=== PATIENT | male | born 1980 | race Two or more races ===

== ENCOUNTER 2017-02-12 05:14 | Inpatient (IN) | payer MEDICAID ==
[~2017-02-12] VITALS: Ht 170.2 cm; Wt 97.1 kg
[2017-02-12] MEDS ORDERED: NKM (05:30)
[2017-02-12 06:00] VITALS: BP 139/80
[2017-02-12] MEDS ORDERED: Morphine Sulfate 4mg/ml Inj IVP ONE (06:00)
[2017-02-12 06:30] LABS: BASOPHILS % (AUTO) 0.8 % (0.0-2.0); EOSINOPHILS % (AUTO) 2.3 % (0.0-3.0); LYMPHOCYTES % (AUTO) 24.3 % (20.0-45.0); MEAN CORPUSCULAR HEMOGLOBIN 27.8 PG (27.0-31.0); MEAN CORPUSCULAR VOLUME 84 FL (80-99); MEAN PLATELET VOLUME 7.6 FL (6.5-10.1); MONOCYTES % (AUTO) 7.8 % (1.0-10.0); NEUTROPHILS % (AUTO) 64.8 % (45.0-75.0); PLATELET COUNT 249 K/UL (150-450); RED BLOOD COUNT 4.86 M/UL (4.70-6.10); WHITE BLOOD COUNT 11.7 K/UL (4.8-10.8)
[2017-02-12 06:51] LABS: ALANINE AMINOTRANSFERASE 49 U/L (3-41); ALBUMIN/GLOBULIN RATIO 1.3 (1.0-2.7); ANION GAP 16 (5-15); ASPARTATE AMINO TRANSFERASE 36 U/L (5-40); CALCIUM 9.3 mg/dL (8.6-10.2); CARBON DIOXIDE 25 mEQ/L (20-30); CHLORIDE 98 mEQ/L (98-107); CREATININE 0.8 mg/dL (0.7-1.2); GLOMERULAR FILTRATION RATE > 60 mL/min (>60); HEMOLYSIS 2; POTASSIUM 3.7 mEQ/L (3.4-4.9); SODIUM 139 mEQ/L (135-145); TOTAL PROTEIN 7.4 g/dL (6.6-8.7); TROPONIN I < 0.30 ng/mL (<=0.30)
[2017-02-12 07:01] LABS: CKMB 2.4 ng/mL (< 6.7)
[2017-02-12] MEDS ORDERED: LR 1000ml 1,000 ML IV STA (07:12)
--- NOTE | 2017-02-12 07:38 | Emergency Room Report ---
History of Present Illness General Chief Complaint: General Complaint Source: Patient (ALE CALLES M.D.) Present Illness HPI 37-year-old male presents ED complaining of pain in his arms and legs. States symptoms started when he woke up this morning. Notes tingling sensation in both his arms and legs. Notes pain in his shoulders bilaterally. Notes pain in his bilateral hips and in his legs. Pain is a 10/10, throbbing, nonradiating. No other aggravating relieving factors. Notes pain and weakness but is able to walk. Difficulty raising his shoulders. States he has difficulty walking as well. Denies drug use. Denies chest pain or shortness of breath. No other aggravating relieving factors. Denies any other associated symptoms (ALE CALLES M.D.) Allergies: Coded Allergies: No Known Allergies (Unverified , 02/12/17) Patient History Past Medical History: none Past Surgical History: none Pertinent Family History: none Social History: Denies: alcohol use, drug use, smoking Immunizations: UTD Reviewed Nursing Documentation: PMH: Agreed, PSxH: Agreed (ALE CALLES M.D.) Nursing Documentation-PMH Past Medical History: No Stated History (ALE CALLES M.D.) Review of Systems All Other Systems: negative except mentioned in HPI (ALE CALLES M.D.) Physical Exam Vital Signs Date Time Temp Pulse Resp B/P Pulse Ox O2 Delivery O2 Flow Rate FiO2 02/12/17 05:24 98.4 90 18 153/80 97 Room Air Sp02 EP Interpretation: reviewed, normal General Appearance: alert, GCS 15, non-toxic, mild distress Head: normocephalic Eyes: bilateral eye PERRL, bilateral eye normal inspection ENT: normal ENT inspection Neck: normal inspection, tender lateral Respiratory: chest non-tender, lungs clear, normal breath sounds, speaking full sentences Cardiovascular #1: regular rate, rhythm, no edema Gastrointestinal: normal bowel sounds, non tender, soft, non-distended, no guarding, no rebound Rectal: deferred Genitourinary: no CVA tenderness Musculoskeletal: back normal, gait/station normal, normal range of motion, tender - bilateral shoulder and hip pain Neurologic: alert, oriented x3, responsive, speech normal, motor weakness, sensory deficit Psychiatric: anxious Skin: normal inspection Lymphatic: normal inspection (ALE CALLES M.D.) Medical Decision Making Diagnostic Impression: Primary Impression: Rhabdomyolysis Qualified Codes: M62.82 - Rhabdomyolysis ER Course Received signout from Dr Calles to followup CT head, CT c-spine CT head: ?old neurocysticercosis CT C-spine: unremarkable However MRI Brain w and w/out contrast was unremarkable Labs notable for Rhabdo but without JAMILAH Patient given 2L IVF hydration in the ED Endorsed to Dr Herrera for med/surg admission at 804am (MARYAM MADDOX M.D.) EKG Diagnostic Results Rate: normal Rhythm: NSR ST Segments: other - repolarization abnormality ASA given to the pt in ED: No (ALE CALLES M.D.) Rhythm Strip Diag. Results EP Interpretation: yes Rhythm: NSR, no PVC's, no ectopy (ALE CALLES M.D.) Last Vital Signs Date Time Temp Pulse Resp B/P Pulse Ox O2 Delivery O2 Flow Rate FiO2 02/12/17 06:00 98.4 78 18 139/80 98 Room Air Status: improved (ALE CALLES M.D.) Status: improved (MARYAM MADDOX M.D.) Disposition: ADMITTED INPATIENT Condition: Serious Referrals: NOT CHOSEN IPA/,REFERRING (PCP) ALE CALLES M.D. February 12, 2017 07:38 MARYAM MADDOX M.D. February 12, 2017 09:13
[2017-02-12 07:46] VITALS: BP 122/77
--- NOTE | 2017-02-12 08:48 | Diagnostic Imaging Report ---
Indication: Left-sided neck pain Technique: Spiral acquisitions obtained through the cervical spine. No IV contrast utilized. Multiplanar reconstructions were generated. Total dose length product 629 mGycm. CTDIvol(s) 25 mGy. Dose reduction achieved using automated exposure control Comparison: None Findings: No acute fractures. Bony alignment is normal. No prevertebral soft tissue swelling. Vertebral body heights are preserved. Disc spaces are preserved. No significant disc bulge or protrusion, spinal stenosis, or neural foraminal stenosis demonstrated. There is bilateral right greater than left maxillary sinus opacification. There is anterior subluxation of the mandibular condyles in relation to the glenoid fossae despite closed mouth positioning. There are dental caries Impression: No acute bony trauma Sinus disease Anterior subluxation of the mandibular condyles bilaterally, significance uncertain. Correlate with clinical findings. This agrees with the preliminary interpretation provided overnight by Dr. Henley The CT scanner at [facility] is accredited by the [employer] and the scans are performed using protocols designed to limit radiation exposure to as low as reasonably achievable to attain images of sufficient resolution adequate for diagnostic evaluation.
--- NOTE | 2017-02-12 08:48 | Diagnostic Imaging Report ---
Indications: Headache Technique: Spiral acquisitions obtained through the brain. Angled axial and coronal 5 x 5 mm slices were reconstructed. Total dose length product 1459 mGycm. CTDI vol(s) 70 mGy. Dose reduction achieved using automated exposure control Comparison: None Findings: No acute hemorrhage or edema. No mass effect or midline shift. Normal dubon-white differentiation. A calcification is seen at the dubon-white junction at the left temporal occipital junction. Another calcification is seen in the left inferior frontal cortex. There is bilateral maxillary sinus disease, right greater than left. Intact calvarium. As well as orbits are unremarkable. Impression: Negative for acute intracranial bleed or mass effect Parenchymal calcifications as described, consistent with old neurocysticercosis This agrees with the preliminary interpretation provided overnight by Dr. Henley The CT scanner at [facility] is accredited by the [employer] and the scans are performed using protocols designed to limit radiation exposure to as low as reasonably achievable to attain images of sufficient resolution adequate for diagnostic evaluation.
--- NOTE | 2017-02-12 08:54 | Diagnostic Imaging Report ---
Indication: 37-year-old male combining attain his arms and legs. Tingling sensation in both his arms legs. Abnormal recent CT scan Technique: sagittal T1 fast spin echo, axial T1 and T2 FLAIR PROPELLER, axial T2 FS PROPELLER, T2* GRE, axial diffusion weighted images, post contrast axial and coronal T1 FLAIR PROPELLER images. ADC and exponential ADC maps generated Comparison: Reference made to CT scan of earlier the same day Findings: . No abnormal areas of restricted diffusion to suggest acute infarction. No acute hemorrhage or edema. No mass effect nor midline shift. No abnormal contrast enhancement. Normal size ventricles and extra axial CSF spaces. There is ethmoid and maxillary sinus disease. The orbits are unremarkable. Parenchymal palpitations described on recent CT are equivocally barely visible on the GRE and axial postcontrast images. The vascular flow voids are preserved.. Impression: Essentially unremarkable exam. Negative for acute intracranial bleed, mass effect, infarct, or contrast enhancing lesion Note that parenchymal calcifications described on recent head CT are barely visualized on MRI
[2017-02-12 10:08] VITALS: BP 117/71
[2017-02-12 12:00] VITALS: BP 147/90
[2017-02-12] MEDS ORDERED: Norco 5mg/325mg tab ORAL PRN (12:30)
[2017-02-12] MEDS: HYDROmorphone 1mg/ml Carpuject IVP PRN ×2 (14:24→21:31)
--- NOTE | 2017-02-12 14:41 | Infectious Diseases Prog Note ---
Assessment/Plan Problems: (1) Brain parenchymal calcification Assessment & Plan: could be due to cystocercosis, brain MRI didn't show any active cysts , so no need for treatment (2) Rhabdomyolysis Assessment & Plan: suspect due to dehydration and vigorous activity , continue IVF , monitor CK. Subjective Allergies: Coded Allergies: No Known Allergies (Unverified , 02/12/17) Objective Vital Signs Last 24 Hour Vital Signs Date Time Temp Pulse Resp B/P Pulse Ox O2 Delivery O2 Flow Rate FiO2 02/12/17 12:00 97.7 72 16 147/90 98 Room Air 02/12/17 10:59 98.5 76 18 117/71 97 Room Air 02/12/17 10:08 76 18 117/71 97 Room Air 02/12/17 08:37 98.5 02/12/17 07:46 80 18 122/77 97 Room Air 02/12/17 06:00 98.4 78 18 139/80 98 Room Air 02/12/17 05:24 98.4 90 18 153/80 97 Room Air Height (Feet): 5 Height (Inches): 7.00 Weight (Pounds): 214 Laboratory Tests Test 02/12/17 06:10 White Blood Count 11.7 K/UL (4.8-10.8) H Red Blood Count 4.86 M/UL (4.70-6.10) Hemoglobin 13.5 G/DL (14.2-18.0) L Hematocrit 40.9 % (42.0-52.0) L Mean Corpuscular Volume 84 FL (80-99) Mean Corpuscular Hemoglobin 27.8 PG (27.0-31.0) Mean Corpuscular Hemoglobin Concent 33.0 G/DL (32.0-36.0) Red Cell Distribution Width 12.0 % (11.6-14.8) Platelet Count 249 K/UL (150-450) Mean Platelet Volume 7.6 FL (6.5-10.1) Neutrophils (%) (Auto) 64.8 % (45.0-75.0) Lymphocytes (%) (Auto) 24.3 % (20.0-45.0) Monocytes (%) (Auto) 7.8 % (1.0-10.0) Eosinophils (%) (Auto) 2.3 % (0.0-3.0) Basophils (%) (Auto) 0.8 % (0.0-2.0) Sodium Level 139 mEQ/L (135-145) Potassium Level 3.7 mEQ/L (3.4-4.9) Chloride Level 98 mEQ/L (98-107) Carbon Dioxide Level 25 mEQ/L (20-30) Anion Gap 16 (5-15) H Blood Urea Nitrogen 13 mg/dL (7-23) Creatinine 0.8 mg/dL (0.7-1.2) Estimat Glomerular Filtration Rate > 60 mL/min (>60) Glucose Level 147 mg/dL (74-106) H Calcium Level 9.3 mg/dL (8.6-10.2) Total Bilirubin 0.4 mg/dL (0.0-1.2) Aspartate Amino Transf (AST/SGOT) 36 U/L (5-40) Alanine Aminotransferase (ALT/SGPT) 49 U/L (3-41) H Alkaline Phosphatase 81 U/L (40-129) Total Creatine Kinase 1496 U/L (38-174) H Creatine Kinase MB 2.4 ng/mL (< 6.7) Creatine Kinase MB Relative Index 0.1 Troponin I < 0.30 ng/mL (<=0.30) Total Protein 7.4 g/dL (6.6-8.7) Albumin 4.3 g/dL (3.5-5.2) Globulin 3.1 g/dL Albumin/Globulin Ratio 1.3 (1.0-2.7) Urine Opiates Screen Negative (NEGATIVE) Urine Barbiturates Screen Negative (NEGATIVE) Phencyclidine (PCP) Screen Negative (NEGATIVE) Urine Amphetamines Screen Negative (NEGATIVE) Urine Benzodiazepines Screen Negative (NEGATIVE) Urine Cocaine Screen Negative (NEGATIVE) Urine Marijuana (THC) Screen Negative (NEGATIVE) Current Medications Medications (Trade) Dose Ordered Sig/Cortney Route PRN Reason Start Time Stop Time Status Last Admin Dose Admin Acetaminophen (Tylenol) 650 mg Q4H PRN ORAL Mild Pain/Temp > 100.5 02/12/17 12:30 03/14/17 12:29 Acetaminophen/ Hydrocodone Bitart ([place] 5/325) 1 tab Q4H PRN ORAL Moderate Pain (Pain Scale 4-6) 02/12/17 12:30 02/19/17 12:29 02/12/17 13:09 Gabapentin (Neurontin) 100 mg THREE TIMES A DAY ORAL 02/12/17 18:00 03/14/17 17:59 Hydromorphone HCl 1 mg 1 mg Q4H PRN IVP Severe Pain (Pain Scale 7-10) 02/12/17 13:30 02/19/17 13:29 02/12/17 14:24 Sodium Chloride (Sodium Chloride 1000ml bag) 1,000 ml @ 100 mls/hr Q10H IV 02/12/17 14:15 03/14/17 14:14 Davey Mcdonough M.D. February 12, 2017 14:41
--- NOTE | 2017-02-12 14:43 | Consultation ---
Consult Note Consult Note 37-year-old male presents ED complaining of pain in his arms and legs. States symptoms started when he woke up this morning. Notes tingling sensation in both his arms and legs. Notes pain in his shoulders bilaterally. Notes pain in his bilateral hips and in his legs. Pain is a 10/10, throbbing, nonradiating. No other aggravating relieving factors. Notes pain and weakness but is able to walk. Difficulty raising his shoulders. States he has difficulty walking as well. Denies drug use. Denies chest pain or shortness of breath. No other aggravating relieving factors. Denies any other associated symptoms Assessment/Plan persumed dehydration and Rhabdo Plan: Hydrate monitor renal parameters check UA per orders DANIE CHAVEZ February 12, 2017 14:43
[2017-02-12 17:16] LABS: APPEARANCE,URINE CLEAR; KETONES,URINE NEGATIVE (NEGATIVE); LEUKOCYTE ESTERASE ,URINE NEGATIVE (NEGATIVE); NITRITE,URINE NEGATIVE (NEGATIVE); PH,URINE 9 (4.5-8.0); PROTEIN,URINE NEGATIVE (NEGATIVE); UROBILINOGEN,URINE NORMAL MG/DL (0.0-1.0)
[2017-02-12 17:33] LABS: RBC,URINE 0 /HPF (0 - 0); WBC,URINE 0 /HPF (0 - 0)
--- NOTE | 2017-02-12 21:01 | Consultation ---
Consult Note Consult Note NEUROLOGY CONSULTATION: Full note dictated #[id number] 37 y/o, RH, HM with benign PH. On 02/09/17 developed an itchy rash all over his body. On 02/10/17 developed paresthesias involving all 4 extremities. Also started to have pain in all his muscles and weakness in all 4 limbs. The problem continued and he was thus brought to the hospital. ON EXAM: Disoriented to exact date. Problems with math Problems with VSF Generalized weakness. Tender muscles. Global areflexia. IMPRESSION: Significant myopathy and neuropathy. Possible viral syndrome vs other infectious process. Neurocysticercosis asymptomatic. REC: CK, Aldolase, TSH, ESR, RPR, HIV. If weakness worsens may want to do LP. Rajan Paniagua M.D., M.S.P.H. RAJAN PANIAGUA February 12, 2017 21:01
--- NOTE | 2017-02-12 21:02 | Consultation ---
DATE OF CONSULTATION: 02/12/2017 INFECTIOUS DISEASE CONSULTATION: CONSULTING PHYSICIAN: Davey Nair M.D. REQUESTING PHYSICIAN: Arnie Zepeda M.D. REASON FOR CONSULTATION: Brain calcification, suspicious for cysticercosis, and recommendation for antimicrobial treatment. HISTORY OF PRESENT ILLNESS: The patient is a 37-year-old male with no previous medical history, who works as a chef kitchen manager in the kitchen, presented with generalized weakness and pain in his arms and legs, started all of sudden, when he woke up on the date of admission, and he noticed some tingling sensation in both arms, legs, and shoulder. The patient could not get up or walk. So, he was carried by his friends and brought into the emergency room for further evaluation and management. He describes his muscle pain as 10/10, localized in his shoulder and hip area. He denied any recent travel or sick contact. He eats raw meat sometimes including beef and pork. He never had any serious illnesses or infection in the past. Head CT scan in the emergency room showed calcification in the brain, which was suspicious for cysticercosis, so ID was consulted by the primary provider for antibiotics treatment. REVIEW OF SYSTEMS: A 12-point of system reviewed were all negative apart from the one I mentioned above in my History and Physical. PAST MEDICAL HISTORY: Negative. PAST SURGICAL HISTORY: Negative. ALLERGIES: He has no known drug allergy. MEDICATIONS: He is on gabapentin and hydrocodone. SOCIAL HISTORY: He works in a kitchen. He denies using any drugs, tobacco, or alcohol. FAMILY HISTORY: Negative for recurrent infection or immunocompromised condition. PHYSICAL EXAMINATION: VITAL SIGNS: Temperature is 97.7 degrees, pulse 72, respirations 16, blood pressure 147/90, and saturation 98% on room air. GENERAL: This is a young male, lying in bed, awake, alert, and weak, not in distress. HEENT: Normocephalic and atraumatic. Pupils are reactive to light. Moist oral mucosa. No exudate. NECK: Supple. No lymphadenopathy. CARDIOVASCULAR: Regular rate and rhythm. No murmur or gallop. LUNGS: Clear bilaterally. No wheezing or rhonchi. ABDOMEN: Soft, nontender, and nondistended. Positive bowel sounds. EXTREMITIES: No edema or cyanosis. Generalized weakness in both upper and lower extremities and local muscle tenderness. LABORATORY DATA: White count is 11.7, hemoglobin 13.5, BUN 13, and creatinine 0.8. AST is 36, ALT 49, and alkaline phosphatase 81. CK is 1496. Toxicology screening is negative. IMAGING: Head CT scan was negative for acute intracranial bleed or mass effect, parenchyma calcifications as described consistent with old neurocysticercosis. Brain MRI with and without contrast showed unremarkable exam with no calcification. Cervical spine CT showed no acute bony trauma with sinus disease. ASSESSMENT AND RECOMMENDATION: 1. Brain calcification in the parenchyma with possible neurocysticercosis. His MRI of the brain did not show any active cyst, which need treatment. I do not recommend any treatment at this point. This is an old calcified lesion with no evidence of active cystic lesions in the brain parenchyma to prompt treatment. 2. Rhabdomyolysis, unclear etiology, possibly due to dehydration and vigorous activities. Recommend intravenous fluids and CK monitor. Davey Nair M.D. DR: Abigail JOB#: [id number] CC:
[2017-02-12 22:05] LABS: HEMOGLOBIN A1C 6.7 % (< 6.0)
[2017-02-12 22:11] LABS: THYROID STIMULATING HORMONE 0.586 uIU/mL (0.300-4.500)
--- NOTE | 2017-02-12 22:47 | Consultation ---
DATE OF CONSULTATION: 02/12/2017 NEUROLOGY CONSULTATION CONSULTING PHYSICIAN: Louie Paniagua M.D. REFERRING PHYSICIAN: Arnie Zepeda M.D. HISTORY: Mr. Trevor Bullard is a 37-year-old, right-handed, gentleman, who has a relatively benign past history. He was functioning relatively well until 02/09/2017 when he developed an itchy rash all over his body. On the next day, 02/10/2017, he developed paresthesias involving all four extremities in the form of tingling and numbness. He also started to have pain in his muscles and weakness in all four limbs. The problem became so difficult to care for at home and as a result of that he presented to the [facility] Emergency Room and has since been admitted. He is uncertain if the weakness has stabilized or not however the pain is still quite severe. The tingling and numbness are also there. He denies any problems with his memory or his mind. He also denies any problems with speech or language. He has not had any similar symptoms in the past. He denies any excessive exercise and also denies any insect bites. PAST MEDICAL HISTORY: Nothing significant. FAMILY HISTORY: Nothing significant. PERSONAL HISTORY: Home: He lives at home with his family. Work: He works as a Cook. Habits: He denies use of tobacco or illicit drugs. He does have a rare alcoholic drink. PRESENT MEDICATIONS: Include gabapentin, Dilaudid, and Foster. PHYSICAL EXAMINATION: GENERAL: He is a well-developed, well-nourished, gentleman, lying in bed, in no acute distress. VITAL SIGNS: Pulse 72 per minute, blood pressure 147/90 mmHg, respirations 16 per minute, temperature 97.7 degrees Fahrenheit. HEAD: Normocephalic and atraumatic. NECK: No neck rigidity was observed. EENT: Benign. NEUROLOGIC EXAMINATION: MENTAL STATUS EXAMINATION: He was alert and awake. He was oriented to person, place, and time except for the exact date and the name of the hospital. He was able to recall 3/3 words immediately after 1 minute and 3 minutes. He was able to remember presidents Trump and Obama but could not remember presidents prior to that. His mathematical skills were impaired. His visuospatial function was also impaired. SPEECH: He had no dysarthria. LANGUAGE: He had no aphasia. CRANIAL NERVE EXAMINATION: II: The visual angulo were intact on confrontation testing. III, IV & : The external ocular movements were full and pupils were 3 mm in diameter, equal, round, and reactive to light. V: He had normal facial sensations and the temporales, masseters, and pterygoids functioned normally. VII: He had normal facial expressions and no facial asymmetry. VIII: He was able to hear well bilaterally and had no nystagmus. IX: The palate moved symmetrically on phonation. X: He had no hoarseness of voice. XI: The sternocleidomastoids and trapezii functioned normally. XII: The tongue was in the midline without any fasciculations or atrophy. MOTOR SYSTEM: The tone was normal in all four extremities. Examination of muscle mass revealed no focal wasting. Examination of power was exceedingly difficult to perform because of significant give-way weakness related to pain. He however did seem to have some true weakness in his proximal and distal upper and lower extremity muscles. He also had tenderness involving all his muscles. SENSORY EXAMINATION: He had intact sensations to pinprick, light touch, and graphesthesia. COORDINATION: Nyrufg-or-bmee testing was performed with much difficulty due to pain. He could not perform [id number]-[id number] testing. REFLEXES: 0 at the biceps, triceps, brachioradialis, knees, and ankles. The plantar responses were flexor bilaterally. STANCE & GAIT: Could not be tested. DIAGNOSTIC IMPRESSION: 1. Mr. Trevor Bullard is a 37-year-old, right-handed, gentleman, who has a relatively benign past history. On 02/09/2017, he developed an itchy rash all over his body. On the next day, that is 02/10/2017 he developed paresthesias involving all four extremities and also started to have pain in all his muscles and weakness in all four limbs, these problems continued and as a result of that he came to the hospital and has since been admitted. He is uncertain if his symptoms have stabilized or not. 2. On neurological examination, at this time, he is disoriented to the exact date and where he is located, has problems with visuospatial function, and higher cognitive function, has generalized weakness associated with tender muscles, has global areflexia, and is unable to stand and walk because of weakness and pain in his limbs. 3. Laboratory data obtained thus far revealed that his WBC count was elevated to 11.7 and he was anemic with a hemoglobin of 13.5. His chemistry panel revealed an anion gap of 16 a blood glucose elevated to 147 and ALT elevated at 49. His CK was elevated to 1496. His urinalysis was relatively benign. His toxicology screen was benign to start with but a repeat toxicology screen was positive for opiates. It should be noted that he did get some opiates in the emergency room. 4. 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 An MRI scan of the brain is relatively benign. 5. The patient's history and neurological examination associated with laboratory data are most compatible with a significant myopathic process and in addition a neuropathic process. The most likely etiology for these processes would be a viral syndrome or other infectious process. 6. The patient's neurocysticercosis is asymptomatic. RECOMMENDATIONS: 1. Agree with management thus far. 2. The patient should be worked up thoroughly for other treatable causes of an acute myopathy and neuropathy, with in addition to the laboratory tests already done, a TSH, ESR, RPR, HIV, and in addition of CK and aldolase should also be checked. 3. If the patient's weakness worsens, we may want to obtain a lumbar puncture to determine if the patient has an acute inflammatory demyelinating polyneuropathy. 4. The patient should be observed closely and well hydrated. Thank you for entrusting me with the care of Mr. Bullard. I shall follow him with you. Louie Paniagua M.D., M.S.P.H. DR: Enrrique JOB#: [id number] AMOL
[2017-02-13] VITALS: BP 132/77
--- NOTE | 2017-02-13 03:32 | History and Physical Report ---
DATE OF ADMISSION: 02/12/2017 HISTORY OF PRESENT ILLNESS: A 37-year-old patient comes in with generalized pain and rhabdomyolysis. The patient apparently has no history of neurocysticercosis as well. Denies nausea, vomiting or diarrhea. No fever or chills. No abdominal pain. No shortness of breath. PAST MEDICAL HISTORY: Neurocysticercosis and GERD. PAST SURGICAL HISTORY: Denies. MEDICATIONS: In the chart. ALLERGIES: Denies. SOCIAL HISTORY: No smoking, drug or alcohol abuse. FAMILY HISTORY: Noncontributory. REVIEW OF SYSTEMS: HEENT: Denies headache. Respiratory: Denies shortness of breath. Denies cough. Cardiovascular: Denies chest pain. Gastrointestinal: Denies nausea, vomiting, or diarrhea. Extremities: Denies pain in the lower extremities. Central Nervous System: He does have generalized weakness. Denies change in vision or speech pattern. PHYSICAL EXAMINATION: VITAL SIGNS: Temperature is 97.2 degrees, pulse 70, and blood pressure 130/70. HEENT: PERRLA. NECK: Supple. No lymphadenopathy. CHEST: Clear to auscultation. GASTROINTESTINAL: Soft, nontender, and nondistended. No organomegaly. EXTREMITIES: No edema. Moves all four extremities. Motor is 5/5. NEUROLOGIC: Sensory is intact to light touch. Reflexes on both sides. LABORATORY AND DIAGNOSTIC DATA: Normal except elevated rhabdomyolysis and CPK of 380. ASSESSMENT AND PLAN: 1. Dehydration. 2. Rhabdomyolysis. 3. History of neurocysticercosis. I will consult Dr. Nair, Dr. Paniagua and Dr. Bah to evaluate for the above-mentioned diagnoses and treatment. Arnie Zepeda M.D. DR: BASIA JOB#: [id number] CC:
[2017-02-13 04:00] VITALS: BP 127/69
[2017-02-13] MEDS: HYDROmorphone 1mg/ml Carpuject IVP PRN ×2 (04:07→12:12)
[2017-02-13 07:03] LABS: BASOPHILS % (AUTO) 0.9 % (0.0-2.0); EOSINOPHILS % (AUTO) 1.8 % (0.0-3.0); LYMPHOCYTES % (AUTO) 28.6 % (20.0-45.0); MEAN CORPUSCULAR HEMOGLOBIN 28.5 PG (27.0-31.0); MEAN CORPUSCULAR HGB CONC 33.8 G/DL (32.0-36.0); MEAN CORPUSCULAR VOLUME 84 FL (80-99); MEAN PLATELET VOLUME 7.1 FL (6.5-10.1); MONOCYTES % (AUTO) 12.2 % (1.0-10.0); NEUTROPHILS % (AUTO) 56.4 % (45.0-75.0); PLATELET COUNT 248 K/UL (150-450); RED BLOOD COUNT 4.44 M/UL (4.70-6.10); RED CELL DISTRIBUTION WIDTH 11.9 % (11.6-14.8); WHITE BLOOD COUNT 10.2 K/UL (4.8-10.8)
[2017-02-13 07:25] LABS: ALANINE AMINOTRANSFERASE 35 U/L (3-41); ANION GAP 15 (5-15); ASPARTATE AMINO TRANSFERASE 19 U/L (5-40); CALCIUM 8.9 mg/dL (8.6-10.2); CARBON DIOXIDE 23 mEQ/L (20-30); CHLORIDE 97 mEQ/L (98-107); CREATININE 0.7 mg/dL (0.7-1.2); GLOMERULAR FILTRATION RATE > 60 mL/min (>60); HEMOLYSIS 1; POTASSIUM 3.6 mEQ/L (3.4-4.9); SODIUM 135 mEQ/L (135-145); TOTAL PROTEIN 7.1 g/dL (6.6-8.7)
[2017-02-13 07:27] LABS: CRP QUANT 10.2 mg/dL (< 0.5); MAGNESIUM 1.6 mg/dL (1.7-2.5); PHOSPHORUS 3.7 mg/dL (2.5-4.8); URIC ACID 3.9 mg/dL (3.0-7.5)
[2017-02-13 08:15] VITALS: BP 130/75
--- NOTE | 2017-02-13 08:28 | Consultation ---
History of Present Illness General Date patient seen: February 13, 2017 Time patient seen: 07:45 - am Chief Complaint: Body pain Referring physician: Duane Present Illness Allergies: Coded Allergies: No Known Allergies (Unverified , 02/12/17) Medication History Scheduled No Known Medications* (NKM - No Known Medications*), 0 ., (Reported) Medications Narrative 37-year-old male presents ED complaining of pain in his arms and legs. States symptoms started when he woke up this morning. Notes tingling sensation in both his arms and legs. Notes pain in his shoulders bilaterally. Notes pain in his bilateral hips and in his legs. Pain is a 10/10, throbbing, nonradiating. No other aggravating relieving factors. Notes pain and weakness but is able to walk. Difficulty raising his shoulders. Patient started on Dilaudid 1mg IV Q4H PRN severe pain which has helped reduce his pain to a 6/10. Patient History Healthcare decision maker Resuscitation status Full Code Advanced Directive on File Review of Systems Constitutional: Reports: weakness Eye: Reports: no symptoms ENT: Reports: no symptoms Respiratory: Reports: no symptoms Cardiovascular: Reports: no symptoms Gastrointestinal: Reports: no symptoms Genitourinary: Reports: no symptoms Musculoskeletal: Reports: muscle pain, muscle stiffness Skin: Reports: no symptoms Psychiatric: Reports: no symptoms Neurological: Reports: no symptoms Endocrine: Reports: no symptoms Hematologic/Lymphatic: Reports: no symptoms Physical Exam General Appearance: WD/WN, no apparent distress, alert HEENT: PERRL, EOMI Neck: non-tender, supple Respiratory/Chest: lungs clear, normal breath sounds Cardiovascular/Chest: normal rate, regular rhythm Abdomen: non tender, soft Extremities: non-tender Skin Exam: warm/dry Neurologic: alert, oriented x 3 Musculoskeletal: normal muscle bulk Last 24 Hour Vital Signs Date Time Temp Pulse Resp B/P Pulse Ox O2 Delivery O2 Flow Rate FiO2 02/13/17 08:15 97.9 74 23 130/75 95 Room Air 02/13/17 04:37 98.0 02/13/17 04:00 98.1 79 20 127/69 98 Room Air 02/13/17 00:00 98.0 80 18 132/77 97 Room Air 99.0 02/12/17 12:00 97.7 72 16 147/90 98 Room Air 02/12/17 10:59 98.5 76 18 117/71 97 Room Air 02/12/17 10:08 76 18 117/71 97 Room Air 02/12/17 08:37 98.5 Intake and Output 02/12/17 02/13/17 19:00 07:00 Intake Total 1880 ml 1560 ml Output Total 600 ml Balance 1280 ml 1560 ml Intake Oral 480 ml 360 ml IV Total 1400 ml 1200 ml Output Urine Total 600 ml # Voids 1 4 Laboratory Tests Test 02/12/17 17:00 02/12/17 21:16 02/13/17 04:30 Urine Color Pale yellow Urine Appearance Clear Urine pH 9 (4.5-8.0) Urine Specific [place] 1.015 (1.005-1.035) Urine Protein Negative (NEGATIVE) Urine Glucose (UA) Negative (NEGATIVE) Urine Ketones Negative (NEGATIVE) Urine Occult Blood Negative (NEGATIVE) Urine Nitrite Negative (NEGATIVE) Urine Bilirubin Negative (NEGATIVE) Urine Urobilinogen Normal MG/DL (0.0-1.0) Urine Leukocyte Esterase Negative (NEGATIVE) Urine RBC 0 /HPF (0 - 0) Urine WBC 0 /HPF (0 - 0) Urine Squamous Epithelial Cells None /LPF (NONE/OCC) Urine Bacteria None /HPF (NONE) Urine Opiates Screen Positive (NEGATIVE) H Urine Barbiturates Screen Negative (NEGATIVE) Phencyclidine (PCP) Screen Negative (NEGATIVE) Urine Amphetamines Screen Negative (NEGATIVE) Urine Benzodiazepines Screen Negative (NEGATIVE) Urine Cocaine Screen Negative (NEGATIVE) Urine Marijuana (THC) Screen Negative (NEGATIVE) Erythrocyte Sedimentation Rate 62 MM/HR (0-15) H Hemoglobin A1c 6.7 % (< 6.0) H Total Creatine Kinase 695 U/L (38-174) H 465 U/L (38-174) H Aldolase Pending Vitamin B12 Level 491 pg/mL (211-946) Vitamin D 25-Hydroxy Pending 25-Hydroxy Vitamin D2 Pending 25-Hydroxy Vitamin D3 Pending Folate Pending Thyroid Stimulating Hormone (TSH) 0.586 uIU/mL (0.300-4.500) Rapid Plasma Reagin Pending HIV (1&2) Antibody Rapid Negative (NEGATIVE) White Blood Count 10.2 K/UL (4.8-10.8) Red Blood Count 4.44 M/UL (4.70-6.10) L Hemoglobin 12.7 G/DL (14.2-18.0) L Hematocrit 37.5 % (42.0-52.0) L Mean Corpuscular Volume 84 FL (80-99) Mean Corpuscular Hemoglobin 28.5 PG (27.0-31.0) Mean Corpuscular Hemoglobin Concent 33.8 G/DL (32.0-36.0) Red Cell Distribution Width 11.9 % (11.6-14.8) Platelet Count 248 K/UL (150-450) Mean Platelet Volume 7.1 FL (6.5-10.1) Neutrophils (%) (Auto) 56.4 % (45.0-75.0) Lymphocytes (%) (Auto) 28.6 % (20.0-45.0) Monocytes (%) (Auto) 12.2 % (1.0-10.0) H Eosinophils (%) (Auto) 1.8 % (0.0-3.0) Basophils (%) (Auto) 0.9 % (0.0-2.0) Sodium Level 135 mEQ/L (135-145) Potassium Level 3.6 mEQ/L (3.4-4.9) Chloride Level 97 mEQ/L (98-107) L Carbon Dioxide Level 23 mEQ/L (20-30) Anion Gap 15 (5-15) Blood Urea Nitrogen 10 mg/dL (7-23) Creatinine 0.7 mg/dL (0.7-1.2) Estimat Glomerular Filtration Rate > 60 mL/min (>60) Glucose Level 142 mg/dL (74-106) H Uric Acid 3.9 mg/dL (3.0-7.5) Calcium Level 8.9 mg/dL (8.6-10.2) Phosphorus Level 3.7 mg/dL (2.5-4.8) Magnesium Level 1.6 mg/dL (1.7-2.5) L Total Bilirubin 0.7 mg/dL (0.0-1.2) Gamma Glutamyl Transpeptidase 40 U/L (8-61) Aspartate Amino Transf (AST/SGOT) 19 U/L (5-40) Alanine Aminotransferase (ALT/SGPT) 35 U/L (3-41) Alkaline Phosphatase 69 U/L (40-129) C-Reactive Protein, Quantitative 10.2 mg/dL (< 0.5) H Total Protein 7.1 g/dL (6.6-8.7) Albumin 3.6 g/dL (3.5-5.2) Globulin 3.5 g/dL Albumin/Globulin Ratio 1.0 (1.0-2.7) Height (Feet): 5 Height (Inches): 7.00 Weight (Pounds): 214 Medications Current Medications Medications (Trade) Dose Ordered Sig/Cortney Route PRN Reason Start Time Stop Time Status Last Admin Dose Admin Acetaminophen (Tylenol) 650 mg Q4H PRN ORAL Mild Pain/Temp > 100.5 02/12/17 12:30 03/14/17 12:29 Acetaminophen/ Hydrocodone Bitart ([place] 5/325) 1 tab Q4H PRN ORAL Moderate Pain (Pain Scale 4-6) 02/12/17 12:30 02/19/17 12:29 02/12/17 13:09 Gabapentin (Neurontin) 100 mg THREE TIMES A DAY ORAL 02/12/17 18:00 03/14/17 17:59 02/13/17 07:58 Hydromorphone HCl 1 mg 1 mg Q4H PRN IVP Severe Pain (Pain Scale 7-10) 02/12/17 13:30 02/19/17 13:29 02/13/17 04:07 Sodium Chloride (Sodium Chloride 1000ml bag) 1,000 ml @ 100 mls/hr Q10H IV 02/12/17 15:00 03/14/17 14:59 02/13/17 00:40 Assessment/Plan Assessment/Plan (1) Rhabdomyolysis (2) Myalgia Pt will be continued on Dilaudid 1mg IV Q4H PRN severe pain D/w Dr. Borjas and he concurred. Thank you for the courtesy of this consultation. FABIENNE MELENDREZ February 13, 2017 08:28
--- NOTE | 2017-02-13 10:55 | Cardiology Report ---
APPROVED REPORT EKG Measurement Heart [id number] Normal sinus rhythm Normal ECG
--- NOTE | 2017-02-13 11:57 | General Progress Note ---
Assessment/Plan Problem List: (1) Rhabdomyolysis ICD Codes: M62.82 - Rhabdomyolysis SNOMED: 207685226 Qualifiers: Qualified Codes: M62.82 - Rhabdomyolysis (2) Brain parenchymal calcification ICD Codes: G93.89 - Other specified disorders of brain SNOMED: 20302047 Status: progressing Assessment/Plan generalized pain and decreased rom due to pain so also consulted dr linda padilla needs aggressive ivfluid treatment Subjective ROS Limited/Unobtainable: Yes Constitutional: Reports: no symptoms Allergies: Coded Allergies: No Known Allergies (Unverified , 02/12/17) Objective Last 24 Hour Vital Signs Date Time Temp Pulse Resp B/P Pulse Ox O2 Delivery O2 Flow Rate FiO2 02/13/17 08:15 97.9 74 23 130/75 95 Room Air 02/13/17 04:37 98.0 02/13/17 04:00 98.1 79 20 127/69 98 Room Air 02/13/17 00:00 98.0 80 18 132/77 97 Room Air 99.0 02/12/17 12:00 97.7 72 16 147/90 98 Room Air Intake and Output 02/12/17 02/13/17 19:00 07:00 Intake Total 1880 ml 1560 ml Output Total 600 ml Balance 1280 ml 1560 ml Intake Oral 480 ml 360 ml IV Total 1400 ml 1200 ml Output Urine Total 600 ml # Voids 1 4 Laboratory Tests 02/12/17 17:00: Urine Color Pale yellow, Urine Appearance Clear, Urine pH 9, Urine Specific [place] 1.015, Urine Protein Negative, Urine Glucose (UA) Negative, Urine Ketones Negative, Urine Occult Blood Negative, Urine Nitrite Negative, Urine Bilirubin Negative, Urine Urobilinogen Normal, Urine Leukocyte Esterase Negative , Urine RBC 0, Urine WBC 0, Urine Squamous Epithelial Cells None, Urine Bacteria None, Urine Opiates Screen PositiveH, Urine Barbiturates Screen Negative, Phencyclidine (PCP) Screen Negative, Urine Amphetamines Screen Negative, Urine Benzodiazepines Screen Negative, Urine Cocaine Screen Negative, Urine Marijuana (THC) Screen Negative 02/12/17 21:16: Erythrocyte Sedimentation Rate 62H, Hemoglobin A1c 6.7H, Total Creatine Kinase 695H, Aldolase [Pending], Vitamin B12 Level 491, Vitamin D 25-Hydroxy [Pending] , 25-Hydroxy Vitamin D2 [Pending], 25-Hydroxy Vitamin D3 [Pending], Folate [ Pending], Thyroid Stimulating Hormone (TSH) 0.586, Rapid Plasma Reagin [Pending] , HIV (1&2) Antibody Rapid Negative 02/13/17 04:30: Total Creatine Kinase 465H, White Blood Count 10.2, Red Blood Count 4.44L, Hemoglobin 12.7L, Hematocrit 37.5L, Mean Corpuscular Volume 84, Mean Corpuscular Hemoglobin 28.5, Mean Corpuscular Hemoglobin Concent 33.8, Red Cell Distribution Width 11.9, Platelet Count 248, Mean Platelet Volume 7.1, Neutrophils (%) (Auto) 56.4, Lymphocytes (%) (Auto) 28.6, Monocytes (%) (Auto) 12.2H, Eosinophils (%) (Auto) 1.8, Basophils (%) (Auto) 0.9, Sodium Level 135, Potassium Level 3.6, Chloride Level 97L, Carbon Dioxide Level 23, Anion Gap 15, Blood Urea Nitrogen 10, Creatinine 0.7, Estimat Glomerular Filtration Rate > 60 , Glucose Level 142H, Uric Acid 3.9, Calcium Level 8.9, Phosphorus Level 3.7, Magnesium Level 1.6L, Total Bilirubin 0.7, Gamma Glutamyl Transpeptidase 40, Aspartate Amino Transf (AST/SGOT) 19, Alanine Aminotransferase (ALT/SGPT) 35, Alkaline Phosphatase 69, C-Reactive Protein, Quantitative 10.2H, Total Protein 7.1, Albumin 3.6, Globulin 3.5, Albumin/Globulin Ratio 1.0 Height (Feet): 5 Height (Inches): 7.00 Weight (Pounds): 214 EENT: PERRL/EOMI Neck: supple Cardiovascular: normal rate Respiratory/Chest: lungs clear Abdomen: non tender Arnie Zepeda MD February 13, 2017 11:57
[2017-02-13 12:15] VITALS: BP 145/82
--- NOTE | 2017-02-13 13:28 | General Progress Note ---
Assessment/Plan Status: stable Assessment/Plan Rhabdo- dehydration- Myopathy- ? viral DM , high A1c diet to medium carb motrin gastric support hydrate per orders Subjective ROS Limited/Unobtainable: No Constitutional: Reports: malaise, other - body pain, weakness Allergies: Coded Allergies: No Known Allergies (Unverified , 02/12/17) Objective Last 24 Hour Vital Signs Date Time Temp Pulse Resp B/P Pulse Ox O2 Delivery O2 Flow Rate FiO2 02/13/17 12:42 97.9 02/13/17 12:15 97.9 79 23 145/82 97 Room Air 02/13/17 08:15 97.9 74 23 130/75 95 Room Air 02/13/17 04:00 98.1 79 20 127/69 98 Room Air 02/13/17 00:00 98.0 80 18 132/77 97 Room Air 99.0 Intake and Output 02/12/17 02/13/17 19:00 07:00 Intake Total 1880 ml 1560 ml Output Total 600 ml Balance 1280 ml 1560 ml Intake Oral 480 ml 360 ml IV Total 1400 ml 1200 ml Output Urine Total 600 ml # Voids 1 4 Laboratory Tests 02/12/17 17:00: Urine Color Pale yellow, Urine Appearance Clear, Urine pH 9, Urine Specific [place] 1.015, Urine Protein Negative, Urine Glucose (UA) Negative, Urine Ketones Negative, Urine Occult Blood Negative, Urine Nitrite Negative, Urine Bilirubin Negative, Urine Urobilinogen Normal, Urine Leukocyte Esterase Negative , Urine RBC 0, Urine WBC 0, Urine Squamous Epithelial Cells None, Urine Bacteria None, Urine Opiates Screen PositiveH, Urine Barbiturates Screen Negative, Phencyclidine (PCP) Screen Negative, Urine Amphetamines Screen Negative, Urine Benzodiazepines Screen Negative, Urine Cocaine Screen Negative, Urine Marijuana (THC) Screen Negative 02/12/17 21:16: Erythrocyte Sedimentation Rate 62H, Hemoglobin A1c 6.7H, Total Creatine Kinase 695H, Aldolase [Pending], Vitamin B12 Level 491, Vitamin D 25-Hydroxy [Pending] , 25-Hydroxy Vitamin D2 [Pending], 25-Hydroxy Vitamin D3 [Pending], Folate [ Pending], Thyroid Stimulating Hormone (TSH) 0.586, Rapid Plasma Reagin [Pending] , HIV (1&2) Antibody Rapid Negative 02/13/17 04:30: Total Creatine Kinase 465H, White Blood Count 10.2, Red Blood Count 4.44L, Hemoglobin 12.7L, Hematocrit 37.5L, Mean Corpuscular Volume 84, Mean Corpuscular Hemoglobin 28.5, Mean Corpuscular Hemoglobin Concent 33.8, Red Cell Distribution Width 11.9, Platelet Count 248, Mean Platelet Volume 7.1, Neutrophils (%) (Auto) 56.4, Lymphocytes (%) (Auto) 28.6, Monocytes (%) (Auto) 12.2H, Eosinophils (%) (Auto) 1.8, Basophils (%) (Auto) 0.9, Sodium Level 135, Potassium Level 3.6, Chloride Level 97L, Carbon Dioxide Level 23, Anion Gap 15, Blood Urea Nitrogen 10, Creatinine 0.7, Estimat Glomerular Filtration Rate > 60 , Glucose Level 142H, Uric Acid 3.9, Calcium Level 8.9, Phosphorus Level 3.7, Magnesium Level 1.6L, Total Bilirubin 0.7, Gamma Glutamyl Transpeptidase 40, Aspartate Amino Transf (AST/SGOT) 19, Alanine Aminotransferase (ALT/SGPT) 35, Alkaline Phosphatase 69, C-Reactive Protein, Quantitative 10.2H, Total Protein 7.1, Albumin 3.6, Globulin 3.5, Albumin/Globulin Ratio 1.0 Height (Feet): 5 Height (Inches): 7.00 Weight (Pounds): 214 General Appearance: mild distress Cardiovascular: regular rhythm Respiratory/Chest: lungs clear Abdomen: soft Objective other PE not changed DANIE CHAVEZ February 13, 2017 13:28
[2017-02-13 13:58] LABS: CHOLESTEROL/HDL RATIO 5.1 (3.3-4.4)
[2017-02-13 16:06] VITALS: BP 129/86
--- NOTE | 2017-02-13 16:10 | Infectious Diseases Prog Note ---
Assessment/Plan Problems: (1) Brain parenchymal calcification Assessment & Plan: could be due to cystocercosis, brain MRI didn't show any active cysts , so no need for treatment (2) Rhabdomyolysis Assessment & Plan: suspect due to dehydration and vigorous activity , continue IVF , monitor CK. (3) Borderline diabetes mellitus Assessment & Plan: recommend diet and exercise, with close monitor of HbA1c Subjective Constitutional: Reports: fatigue HEENT: Reports: no symptoms Respiratory: Reports: no symptoms Cardiovascular: Reports: no symptoms Gastrointestinal/Abdominal: Reports: no symptoms Genitourinary: Reports: no symptoms Neurologic: Reports: no symptoms Psychiatric: Reports: no symptoms Skin: Reports: no symptoms Endocrine: Reports: no symptoms Allergies: Coded Allergies: No Known Allergies (Unverified , 02/12/17) Objective Vital Signs Last 24 Hour Vital Signs Date Time Temp Pulse Resp B/P Pulse Ox O2 Delivery O2 Flow Rate FiO2 02/13/17 16:06 98.1 75 21 129/86 95 Room Air 02/13/17 12:42 97.9 02/13/17 12:15 97.9 79 23 145/82 97 Room Air 02/13/17 08:15 97.9 74 23 130/75 95 Room Air 02/13/17 04:00 98.1 79 20 127/69 98 Room Air 02/13/17 00:00 98.0 80 18 132/77 97 Room Air 99.0 Height (Feet): 5 Height (Inches): 7.00 Weight (Pounds): 214 General Appearance: WD/WN, no acute distress HEENT: normocephalic, atraumatic, anicteric, mucous membranes moist Respiratory/Chest: chest wall non-tender, lungs clear, normal breath sounds, no respiratory distress, no accessory muscle use Cardiovascular: normal peripheral pulses, normal rate, regular rhythm, no gallop/murmur Abdomen: normal bowel sounds, soft, non tender, no organomegaly, non distended , no mass Extremities: no cyanosis, no clubbing Skin: no rash, no lesions Laboratory Tests Test 02/12/17 17:00 02/12/17 21:16 02/13/17 04:30 Urine Color Pale yellow Urine Appearance Clear Urine pH 9 (4.5-8.0) Urine Specific [place] 1.015 (1.005-1.035) Urine Protein Negative (NEGATIVE) Urine Glucose (UA) Negative (NEGATIVE) Urine Ketones Negative (NEGATIVE) Urine Occult Blood Negative (NEGATIVE) Urine Nitrite Negative (NEGATIVE) Urine Bilirubin Negative (NEGATIVE) Urine Urobilinogen Normal MG/DL (0.0-1.0) Urine Leukocyte Esterase Negative (NEGATIVE) Urine RBC 0 /HPF (0 - 0) Urine WBC 0 /HPF (0 - 0) Urine Squamous Epithelial Cells None /LPF (NONE/OCC) Urine Bacteria None /HPF (NONE) Urine Opiates Screen Positive (NEGATIVE) H Urine Barbiturates Screen Negative (NEGATIVE) Phencyclidine (PCP) Screen Negative (NEGATIVE) Urine Amphetamines Screen Negative (NEGATIVE) Urine Benzodiazepines Screen Negative (NEGATIVE) Urine Cocaine Screen Negative (NEGATIVE) Urine Marijuana (THC) Screen Negative (NEGATIVE) Erythrocyte Sedimentation Rate 62 MM/HR (0-15) H Hemoglobin A1c 6.7 % (< 6.0) H Total Creatine Kinase 695 U/L (38-174) H 465 U/L (38-174) H Aldolase Pending Vitamin B12 Level 491 pg/mL (211-946) Vitamin D 25-Hydroxy Pending 25-Hydroxy Vitamin D2 Pending 25-Hydroxy Vitamin D3 Pending Folate Pending Thyroid Stimulating Hormone (TSH) 0.586 uIU/mL (0.300-4.500) Rapid Plasma Reagin Pending HIV (1&2) Antibody Rapid Negative (NEGATIVE) White Blood Count 10.2 K/UL (4.8-10.8) Red Blood Count 4.44 M/UL (4.70-6.10) L Hemoglobin 12.7 G/DL (14.2-18.0) L Hematocrit 37.5 % (42.0-52.0) L Mean Corpuscular Volume 84 FL (80-99) Mean Corpuscular Hemoglobin 28.5 PG (27.0-31.0) Mean Corpuscular Hemoglobin Concent 33.8 G/DL (32.0-36.0) Red Cell Distribution Width 11.9 % (11.6-14.8) Platelet Count 248 K/UL (150-450) Mean Platelet Volume 7.1 FL (6.5-10.1) Neutrophils (%) (Auto) 56.4 % (45.0-75.0) Lymphocytes (%) (Auto) 28.6 % (20.0-45.0) Monocytes (%) (Auto) 12.2 % (1.0-10.0) H Eosinophils (%) (Auto) 1.8 % (0.0-3.0) Basophils (%) (Auto) 0.9 % (0.0-2.0) Sodium Level 135 mEQ/L (135-145) Potassium Level 3.6 mEQ/L (3.4-4.9) Chloride Level 97 mEQ/L (98-107) L Carbon Dioxide Level 23 mEQ/L (20-30) Anion Gap 15 (5-15) Blood Urea Nitrogen 10 mg/dL (7-23) Creatinine 0.7 mg/dL (0.7-1.2) Estimat Glomerular Filtration Rate > 60 mL/min (>60) Glucose Level 142 mg/dL (74-106) H Uric Acid 3.9 mg/dL (3.0-7.5) Calcium Level 8.9 mg/dL (8.6-10.2) Phosphorus Level 3.7 mg/dL (2.5-4.8) Magnesium Level 1.6 mg/dL (1.7-2.5) L Total Bilirubin 0.7 mg/dL (0.0-1.2) Gamma Glutamyl Transpeptidase 40 U/L (8-61) Aspartate Amino Transf (AST/SGOT) 19 U/L (5-40) Alanine Aminotransferase (ALT/SGPT) 35 U/L (3-41) Alkaline Phosphatase 69 U/L (40-129) Lactate Dehydrogenase 148 U/L (135-230) C-Reactive Protein, Quantitative 10.2 mg/dL (< 0.5) H Total Protein 7.1 g/dL (6.6-8.7) Albumin 3.6 g/dL (3.5-5.2) Globulin 3.5 g/dL Albumin/Globulin Ratio 1.0 (1.0-2.7) Triglycerides Level 129 mg/dL (< 150) Cholesterol Level 187 mg/dL (< 200) LDL Cholesterol 124 mg/dL (60-99) H HDL Cholesterol 37 mg/dL (> 60) Cholesterol/HDL Ratio 5.1 (3.3-4.4) H Current Medications Medications (Trade) Dose Ordered Sig/[place] Route PRN Reason Start Time Stop Time Status Last Admin Dose Admin Acetaminophen (Tylenol) 650 mg Q4H PRN ORAL Mild Pain/Temp > 100.5 02/12/17 12:30 03/14/17 12:29 Acetaminophen/ Hydrocodone Bitart ([place] 5/325) 1 tab Q4H PRN ORAL sever Pain (Pain Scale 6-10) 02/13/17 16:12 02/20/17 16:11 Gabapentin 100 mg 100 mg THREE TIMES A DAY ORAL 02/12/17 18:00 03/14/17 17:59 02/13/17 12:11 Ibuprofen (Motrin) 600 mg TIPC ORAL 02/13/17 15:00 03/15/17 14:59 02/13/17 15:00 Ondansetron HCl (Zofran) 4 mg Q6H PRN IVP Nausea & Vomiting 02/13/17 11:00 03/15/17 10:59 Pantoprazole (Protonix) 40 mg EVERY 12 HOURS ORAL 02/13/17 15:00 03/15/17 14:59 02/13/17 15:00 Sodium Chloride (Sodium Chloride 1000ml bag) 1,000 ml @ 100 mls/hr Q10H IV 02/12/17 15:00 03/14/17 14:59 02/13/17 10:00 Davey Nair M.D. February 13, 2017 16:10
[2017-02-13] MEDS ORDERED: Norco 5mg/325mg tab ORAL PRN (16:12)
--- NOTE | 2017-02-13 18:03 | Neurology Progress Note ---
Interim History Interim History Interim History Mr. Bullard feels better today. The muscle pain is better. He feels stronger and is able to move his limbs better. The tingling and numbness has improved. He denies any new neurologic symptoms. Review of Systems Neuro Review of Systems Benign. Objective Physical Exam Last Vital Signs Date Time Temp Pulse Resp B/P Pulse Ox O2 Delivery O2 Flow Rate FiO2 02/13/17 16:06 98.1 75 21 129/86 95 Room Air 02/13/17 00:00 99.0 Laboratory Tests Test 02/12/17 21:16 02/13/17 04:30 Erythrocyte Sedimentation Rate 62 MM/HR (0-15) H Hemoglobin A1c 6.7 % (< 6.0) H Total Creatine Kinase 695 U/L (38-174) H 465 U/L (38-174) H Aldolase Pending Vitamin B12 Level 491 pg/mL (211-946) Vitamin D 25-Hydroxy Pending 25-Hydroxy Vitamin D2 Pending 25-Hydroxy Vitamin D3 Pending Folate Pending Thyroid Stimulating Hormone (TSH) 0.586 uIU/mL (0.300-4.500) Rapid Plasma Reagin Pending HIV (1&2) Antibody Rapid Negative (NEGATIVE) White Blood Count 10.2 K/UL (4.8-10.8) Red Blood Count 4.44 M/UL (4.70-6.10) L Hemoglobin 12.7 G/DL (14.2-18.0) L Hematocrit 37.5 % (42.0-52.0) L Mean Corpuscular Volume 84 FL (80-99) Mean Corpuscular Hemoglobin 28.5 PG (27.0-31.0) Mean Corpuscular Hemoglobin Concent 33.8 G/DL (32.0-36.0) Red Cell Distribution Width 11.9 % (11.6-14.8) Platelet Count 248 K/UL (150-450) Mean Platelet Volume 7.1 FL (6.5-10.1) Neutrophils (%) (Auto) 56.4 % (45.0-75.0) Lymphocytes (%) (Auto) 28.6 % (20.0-45.0) Monocytes (%) (Auto) 12.2 % (1.0-10.0) H Eosinophils (%) (Auto) 1.8 % (0.0-3.0) Basophils (%) (Auto) 0.9 % (0.0-2.0) Sodium Level 135 mEQ/L (135-145) Potassium Level 3.6 mEQ/L (3.4-4.9) Chloride Level 97 mEQ/L (98-107) L Carbon Dioxide Level 23 mEQ/L (20-30) Anion Gap 15 (5-15) Blood Urea Nitrogen 10 mg/dL (7-23) Creatinine 0.7 mg/dL (0.7-1.2) Estimat Glomerular Filtration Rate > 60 mL/min (>60) Glucose Level 142 mg/dL (74-106) H Uric Acid 3.9 mg/dL (3.0-7.5) Calcium Level 8.9 mg/dL (8.6-10.2) Phosphorus Level 3.7 mg/dL (2.5-4.8) Magnesium Level 1.6 mg/dL (1.7-2.5) L Total Bilirubin 0.7 mg/dL (0.0-1.2) Gamma Glutamyl Transpeptidase 40 U/L (8-61) Aspartate Amino Transf (AST/SGOT) 19 U/L (5-40) Alanine Aminotransferase (ALT/SGPT) 35 U/L (3-41) Alkaline Phosphatase 69 U/L (40-129) Lactate Dehydrogenase 148 U/L (135-230) C-Reactive Protein, Quantitative 10.2 mg/dL (< 0.5) H Total Protein 7.1 g/dL (6.6-8.7) Albumin 3.6 g/dL (3.5-5.2) Globulin 3.5 g/dL Albumin/Globulin Ratio 1.0 (1.0-2.7) Triglycerides Level 129 mg/dL (< 150) Cholesterol Level 187 mg/dL (< 200) LDL Cholesterol 124 mg/dL (60-99) H HDL Cholesterol 37 mg/dL (> 60) Cholesterol/HDL Ratio 5.1 (3.3-4.4) H Neurologic Exam Objective PHYSICAL EXAMINATION: GENERAL: He is a well-developed, well-nourished, gentleman, lying in bed, in no acute distress. HEAD: Normocephalic and atraumatic. NECK: No neck rigidity was observed. EENT: Benign. NEUROLOGIC EXAMINATION: MENTAL STATUS EXAMINATION: He was alert and awake. He was oriented to person, place, and time except for the exact date. He was able to recall 3/3 words immediately after 1 minute and 3 minutes. He was able to remember presidents Trump and Obama but could not remember presidents prior to that. His mathematical skills were impaired. His visuospatial function was also impaired. SPEECH: He had no dysarthria. LANGUAGE: He had no aphasia. CRANIAL NERVE EXAMINATION: II: The visual angulo were intact on confrontation testing. III, IV & : The external ocular movements were full and pupils were 3 mm in diameter, equal, round, and reactive to light. V: He had normal facial sensations and the temporales, masseters, and pterygoids functioned normally. VII: He had normal facial expressions and no facial asymmetry. VIII: He was able to hear well bilaterally and had no nystagmus. IX: The palate moved symmetrically on phonation. X: He had no hoarseness of voice. XI: The sternocleidomastoids and trapezii functioned normally. XII: The tongue was in the midline without any fasciculations or atrophy. MOTOR SYSTEM: The tone was normal in all four extremities. Examination of muscle mass revealed no focal wasting. Examination of power revealed G 5/5 power except for G 4+/5 in the iliopsoas muscles bilaterally and G 4++/5 in the deltoids bilaterally. He did have mild give way weakness in all muscle groups. The muscle tenderness was much improved. SENSORY EXAMINATION: He had intact sensations to pinprick, light touch, and graphesthesia. COORDINATION: [id number] and oskx-[id number] testing was performed well. REFLEXES: 0 at the biceps, triceps, brachioradialis, knees, and ankles. The plantar responses were flexor bilaterally. STANCE: He stood up with support on one side. Impression/Recommendations Diagnostic Impression 1. Mr. Trevor Bullard is a 37-year-old, right-handed, gentleman, who has a relatively benign past history. On 02/09/2017, he developed an itchy rash all over his body. On the next day, that is 02/10/2017 he developed paresthesias involving all four extremities and also started to have pain in all his muscles and weakness in all four limbs, these problems continued and as a result of that he came to the hospital and was admitted. 2. He feels he is definitely better today. The pain, weakness and numbness are all better. 3. On neurological examination, at this time, he is disoriented to the exact date, has problems with visuospatial function, and higher cognitive function. His weakness has improved significantly with mild proximal lower extremity > upper extremity weakness. The muscle tenderness has improved markedly. He still has global areflexia. He ia able to stand and walk today. 4. Laboratory data on my initial evaluation revealed that his WBC count was elevated to 11.7 and he was anemic with a hemoglobin of 13.5. His chemistry panel revealed an anion gap of 16 a blood glucose elevated to 147 and ALT elevated at 49. His CK was elevated to 1496. His urinalysis was relatively benign. His toxicology screen was benign to start with but a repeat toxicology screen was positive for opiates. It should be noted that he did get some opiates in the emergency room. 5. Further laboratory tests have revealed that his CK is now down to 465. His HB A1C is elevated to 6.7% putting him in a diabetic range. His ESR is also elevated to 65. 6. 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 7. An MRI scan of the brain is relatively benign. 8. The patient's history and neurological examination associated with laboratory data are most compatible with a significant myopathic process and in addition a neuropathic process. The most likely etiology for these processes would be a viral syndrome or other infectious process. The neuropathy could also be related to diabetes. 9. The patient's neurocysticercosis is asymptomatic. Recommendations 1. Continue present management. 2. Await results of aldolase. 3. Treatment of diabetes mellitus. 4. Increase activity as tolerated. Louie Casillas M.D., M.S.P.H. LOUIE CASILLAS February 13, 2017 18:03
[2017-02-13 20:00] VITALS: BP 123/69
[2017-02-14] VITALS: BP 119/75
[2017-02-14 04:00] VITALS: BP 119/75
[2017-02-14 07:56] LABS: ALANINE AMINOTRANSFERASE 35 U/L (3-41); ANION GAP 14 (5-15); ASPARTATE AMINO TRANSFERASE 19 U/L (5-40); CALCIUM 8.9 mg/dL (8.6-10.2); CARBON DIOXIDE 24 mEQ/L (20-30); CHLORIDE 102 mEQ/L (98-107); CREATININE 0.7 mg/dL (0.7-1.2); CRP QUANT 10.6 mg/dL (< 0.5); GLOMERULAR FILTRATION RATE > 60 mL/min (>60); HEMOLYSIS 9; PHOSPHORUS 3.4 mg/dL (2.5-4.8); POTASSIUM 3.8 mEQ/L (3.4-4.9); SODIUM 140 mEQ/L (135-145); TOTAL PROTEIN 6.9 g/dL (6.6-8.7); URIC ACID 4.3 mg/dL (3.0-7.5)
[2017-02-14 08:00] VITALS: BP 133/83
--- NOTE | 2017-02-14 11:25 | General Progress Note ---
Assessment/Plan Status: stable Assessment/Plan status: Rhabdo- Ck lowering dehydration- Myopathy- ? viral DM , high A1c plan: diet to medium carb motrin gastric support hydrate per orders ? DC planning? Subjective ROS Limited/Unobtainable: No Constitutional: Reports: malaise, other - overall improving, weakness Allergies: Coded Allergies: No Known Allergies (Unverified , 02/12/17) Objective Last 24 Hour Vital Signs Date Time Temp Pulse Resp B/P Pulse Ox O2 Delivery O2 Flow Rate FiO2 02/14/17 09:55 97.5 02/14/17 08:00 97.5 65 20 133/83 97 Room Air 02/14/17 04:00 97.6 76 19 119/75 100 Room Air 02/14/17 00:00 97.4 64 18 119/75 97 Room Air 02/13/17 20:00 98.6 65 17 123/69 100 Room Air 02/13/17 16:06 98.1 75 21 129/86 95 Room Air 02/13/17 12:42 97.9 02/13/17 12:15 97.9 79 23 145/82 97 Room Air Intake and Output 02/13/17 02/14/17 19:00 07:00 Intake Total 1900 ml 1200 ml Output Total 2550 ml Balance -650 ml 1200 ml Intake Oral 1200 ml IV Total 700 ml 1200 ml Output Urine Total 2550 ml # Voids 8 2 Laboratory Tests 02/14/17 05:40: Sodium Level 140, Potassium Level 3.8, Chloride Level 102, Carbon Dioxide Level 24, Anion Gap 14, Blood Urea Nitrogen 14, Creatinine 0.7, Estimat Glomerular Filtration Rate > 60, Glucose Level 120H, Uric Acid 4.3, Calcium Level 8.9, Phosphorus Level 3.4, Magnesium Level 2.0, Total Bilirubin 0.5, Gamma Glutamyl Transpeptidase 41, Aspartate Amino Transf (AST/SGOT) 19, Alanine Aminotransferase (ALT/SGPT) 35, Alkaline Phosphatase 66, Total Creatine Kinase 237H, C-Reactive Protein, Quantitative 10.6H, Total Protein 6.9, Albumin 3.5, Globulin 3.4, Albumin/Globulin Ratio 1.0 Height (Feet): 5 Height (Inches): 7.00 Weight (Pounds): 214 General Appearance: no apparent distress Neck: normal alignment Cardiovascular: normal rate Respiratory/Chest: lungs clear Abdomen: soft Objective other PE not changed DANIE CHAVEZ February 14, 2017 11:25
--- NOTE | 2017-02-14 11:36 | Diagnostic Imaging Report ---
APPROVED REPORT CPT Code: 75477 Present Symptoms Lower Extremity Pain: Bilateral Comments: Bilateral lower extremity weakness. BILATERAL: Imaging reveals a patent deep venous system bilaterally. There is no evidence of thrombus within the femoral, popliteal or tibial segments. The greater saphenous veins are also within normal limits. Doppler indicates normal spontaneous flow within these segments. Incidental finding: Enlarged lymph node noted at the right common femoral vein level measuring (1.8 cm x 1.5 cm x 0.6 cm) .
[2017-02-14 12:00] VITALS: BP 117/67
--- NOTE | 2017-02-14 12:17 | General Progress Note ---
Assessment/Plan Problem List: (1) Rhabdomyolysis ICD Codes: M62.82 - Rhabdomyolysis SNOMED: 025743503 Qualifiers: Qualified Codes: M62.82 - Rhabdomyolysis (2) Brain parenchymal calcification ICD Codes: G93.89 - Other specified disorders of brain SNOMED: 47770613 Status: progressing Assessment/Plan generalized pain and decreased rom due to pain consulted dr mckeon afebrile vitals stable rhabdo need iv fluids Subjective ROS Limited/Unobtainable: Yes Constitutional: Reports: no symptoms Allergies: Coded Allergies: No Known Allergies (Unverified , 02/12/17) Objective Last 24 Hour Vital Signs Date Time Temp Pulse Resp B/P Pulse Ox O2 Delivery O2 Flow Rate FiO2 02/14/17 09:55 97.5 02/14/17 08:00 97.5 65 20 133/83 97 Room Air 02/14/17 04:00 97.6 76 19 119/75 100 Room Air 02/14/17 00:00 97.4 64 18 119/75 97 Room Air 02/13/17 20:00 98.6 65 17 123/69 100 Room Air 02/13/17 16:06 98.1 75 21 129/86 95 Room Air 02/13/17 12:42 97.9 Intake and Output 02/13/17 02/14/17 19:00 07:00 Intake Total 1900 ml 1200 ml Output Total 2550 ml Balance -650 ml 1200 ml Intake Oral 1200 ml IV Total 700 ml 1200 ml Output Urine Total 2550 ml # Voids 8 2 Laboratory Tests 02/14/17 05:40: Sodium Level 140, Potassium Level 3.8, Chloride Level 102, Carbon Dioxide Level 24, Anion Gap 14, Blood Urea Nitrogen 14, Creatinine 0.7, Estimat Glomerular Filtration Rate > 60, Glucose Level 120H, Uric Acid 4.3, Calcium Level 8.9, Phosphorus Level 3.4, Magnesium Level 2.0, Total Bilirubin 0.5, Gamma Glutamyl Transpeptidase 41, Aspartate Amino Transf (AST/SGOT) 19, Alanine Aminotransferase (ALT/SGPT) 35, Alkaline Phosphatase 66, Total Creatine Kinase 237H, C-Reactive Protein, Quantitative 10.6H, Total Protein 6.9, Albumin 3.5, Globulin 3.4, Albumin/Globulin Ratio 1.0 Height (Feet): 5 Height (Inches): 7.00 Weight (Pounds): 214 Cardiovascular: normal peripheral pulses Respiratory/Chest: lungs clear Abdomen: soft Arnie Zepeda MD February 14, 2017 12:17
--- NOTE | 2017-02-14 13:01 | Neurology Progress Note ---
Interim History Interim History Interim History Mr. Bullard feels much better today. The muscle pain is markedly better. He feels significantly stronger and is able to move his limbs well. The tingling and numbness has resolved. He denies any new neurologic symptoms. Review of Systems Neuro Review of Systems Benign. Objective Physical Exam Last Vital Signs Date Time Temp Pulse Resp B/P Pulse Ox O2 Delivery O2 Flow Rate FiO2 02/14/17 12:00 97.5 70 20 117/67 96 Room Air 02/13/17 00:00 99.0 Laboratory Tests Test 02/14/17 05:40 Sodium Level 140 mEQ/L (135-145) Potassium Level 3.8 mEQ/L (3.4-4.9) Chloride Level 102 mEQ/L (98-107) Carbon Dioxide Level 24 mEQ/L (20-30) Anion Gap 14 (5-15) Blood Urea Nitrogen 14 mg/dL (7-23) Creatinine 0.7 mg/dL (0.7-1.2) Estimat Glomerular Filtration Rate > 60 mL/min (>60) Glucose Level 120 mg/dL (74-106) H Uric Acid 4.3 mg/dL (3.0-7.5) Calcium Level 8.9 mg/dL (8.6-10.2) Phosphorus Level 3.4 mg/dL (2.5-4.8) Magnesium Level 2.0 mg/dL (1.7-2.5) Total Bilirubin 0.5 mg/dL (0.0-1.2) Gamma Glutamyl Transpeptidase 41 U/L (8-61) Aspartate Amino Transf (AST/SGOT) 19 U/L (5-40) Alanine Aminotransferase (ALT/SGPT) 35 U/L (3-41) Alkaline Phosphatase 66 U/L (40-129) Total Creatine Kinase 237 U/L (38-174) H C-Reactive Protein, Quantitative 10.6 mg/dL (< 0.5) H Total Protein 6.9 g/dL (6.6-8.7) Albumin 3.5 g/dL (3.5-5.2) Globulin 3.4 g/dL Albumin/Globulin Ratio 1.0 (1.0-2.7) Neurologic Exam Objective PHYSICAL EXAMINATION: GENERAL: He is a well-developed, well-nourished, gentleman, lying in bed, in no acute distress. HEAD: Normocephalic and atraumatic. NECK: No neck rigidity was observed. EENT: Benign. NEUROLOGIC EXAMINATION: MENTAL STATUS EXAMINATION: He was alert and awake. He was oriented to person, place, and time except for the exact date. He was able to recall 3/3 words immediately after 1 minute and 3 minutes. He was able to remember presidents Trump and Obama but could not remember presidents prior to that. His mathematical skills were impaired. His visuospatial function was also impaired. SPEECH: He had no dysarthria. LANGUAGE: He had no aphasia. CRANIAL NERVE EXAMINATION: II: The visual angulo were intact on confrontation testing. III, IV & : The external ocular movements were full and pupils were 3 mm in diameter, equal, round, and reactive to light. V: He had normal facial sensations and the temporales, masseters, and pterygoids functioned normally. VII: He had normal facial expressions and no facial asymmetry. VIII: He was able to hear well bilaterally and had no nystagmus. IX: The palate moved symmetrically on phonation. X: He had no hoarseness of voice. XI: The sternocleidomastoids and trapezii functioned normally. XII: The tongue was in the midline without any fasciculations or atrophy. MOTOR SYSTEM: The tone was normal in all four extremities. Examination of muscle mass revealed no focal wasting. Examination of power revealed G 5/5 power except for G 5-/5 in the iliopsoas muscles bilaterally. The muscle tenderness was markedly improved. SENSORY EXAMINATION: He had intact sensations to pinprick, light touch, and graphesthesia. COORDINATION: Snvzak-vu-rflv and hwek-qe-zksc testing was performed well. REFLEXES: 0 at the biceps, triceps, brachioradialis and ankles. 1++ at the knees. The plantar responses were flexor bilaterally. STANCE: He stood up independently. GAIT: He walked well independently. Impression/Recommendations Diagnostic Impression 1. Mr. Trevor Bullard is a 37-year-old, right-handed, gentleman, who has a relatively benign past history. On 02/09/2017, he developed an itchy rash all over his body. On the next day, that is 02/10/2017 he developed paresthesias involving all four extremities and also started to have pain in all his muscles and weakness in all four limbs, these problems continued and as a result of that he came to the hospital and was admitted. 2. He feels much better today. The pain, weakness and numbness are all better. 3. On neurological examination, at this time, he is disoriented to the exact date, has problems with visuospatial function, and higher cognitive function. His weakness has improved markedly with minimal proximal lower extremity weakness. The muscle tenderness has improved markedly. He still has global areflexia other than return of knee jerks. He is able to stand and walk independently today. 4. Laboratory data on my initial evaluation revealed that his WBC count was elevated to 11.7 and he was anemic with a hemoglobin of 13.5. His chemistry panel revealed an anion gap of 16 a blood glucose elevated to 147 and ALT elevated at 49. His CK was elevated to 1496. His urinalysis was relatively benign. His toxicology screen was benign to start with but a repeat toxicology screen was positive for opiates. It should be noted that he did get some opiates in the emergency room. 5. Further laboratory tests have revealed that his HB A1C is elevated to 6.7% putting him in a diabetic range. His ESR is also elevated to 65. 6. Hs CK is now down to 237. 7. 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 8. An MRI scan of the brain is relatively benign. 9. The patient's history and neurological examination associated with laboratory data are most compatible with a significant myopathic process and in addition a neuropathic process. The most likely etiology for these processes would be a viral syndrome or other infectious process. The neuropathy could also be related to diabetes. 10. The patient's neurocysticercosis is asymptomatic. 11. His neuropathy and myopathy are both improving rapidly. Recommendations 1. Continue present management. 2. Await results of aldolase. 3. Check EBV titers. 4. Treatment of diabetes mellitus. 5. Increase activity as tolerated. Louie Casillas M.D., M.S.P.Ekta. LOUIE CASILLAS February 14, 2017 13:01
--- NOTE | 2017-02-14 15:18 | Infectious Diseases Prog Note ---
Assessment/Plan Problems: (1) Brain parenchymal calcification Assessment & Plan: could be due to cystocercosis, brain MRI didn't show any active cysts , so no need for treatment (2) Rhabdomyolysis Assessment & Plan: doubt due to infectious etiology with no viral symptoms, suspect due to dehydration and vigorous activity , continue IVF , monitor CK. (3) Borderline diabetes mellitus Assessment & Plan: recommend diet and exercise, with close monitor of HbA1c Subjective Constitutional: Reports: no symptoms HEENT: Reports: no symptoms Respiratory: Reports: no symptoms Breasts: Reports: no symptoms Cardiovascular: Reports: no symptoms Gastrointestinal/Abdominal: Reports: no symptoms Genitourinary: Reports: no symptoms Neurologic: Reports: no symptoms Psychiatric: Reports: no symptoms Skin: Reports: no symptoms Endocrine: Reports: no symptoms Allergies: Coded Allergies: No Known Allergies (Unverified , 02/12/17) Objective Vital Signs Last 24 Hour Vital Signs Date Time Temp Pulse Resp B/P Pulse Ox O2 Delivery O2 Flow Rate FiO2 02/14/17 13:15 97.5 02/14/17 12:00 97.5 70 20 117/67 96 Room Air 02/14/17 08:00 97.5 65 20 133/83 97 Room Air 02/14/17 04:00 97.6 76 19 119/75 100 Room Air 02/14/17 00:00 97.4 64 18 119/75 97 Room Air 02/13/17 20:00 98.6 65 17 123/69 100 Room Air 02/13/17 16:06 98.1 75 21 129/86 95 Room Air Height (Feet): 5 Height (Inches): 7.00 Weight (Pounds): 214 General Appearance: WD/WN, no acute distress HEENT: normocephalic, atraumatic, anicteric, mucous membranes moist Respiratory/Chest: chest wall non-tender, lungs clear, normal breath sounds, no respiratory distress, no accessory muscle use Cardiovascular: normal peripheral pulses, normal rate, regular rhythm, no gallop/murmur, no JVD Abdomen: normal bowel sounds, soft, non tender, no organomegaly, non distended , no mass Extremities: no cyanosis, no clubbing Skin: no rash, no lesions, no ulcers Laboratory Tests Test 02/14/17 05:40 Sodium Level 140 mEQ/L (135-145) Potassium Level 3.8 mEQ/L (3.4-4.9) Chloride Level 102 mEQ/L (98-107) Carbon Dioxide Level 24 mEQ/L (20-30) Anion Gap 14 (5-15) Blood Urea Nitrogen 14 mg/dL (7-23) Creatinine 0.7 mg/dL (0.7-1.2) Estimat Glomerular Filtration Rate > 60 mL/min (>60) Glucose Level 120 mg/dL (74-106) H Uric Acid 4.3 mg/dL (3.0-7.5) Calcium Level 8.9 mg/dL (8.6-10.2) Phosphorus Level 3.4 mg/dL (2.5-4.8) Magnesium Level 2.0 mg/dL (1.7-2.5) Total Bilirubin 0.5 mg/dL (0.0-1.2) Gamma Glutamyl Transpeptidase 41 U/L (8-61) Aspartate Amino Transf (AST/SGOT) 19 U/L (5-40) Alanine Aminotransferase (ALT/SGPT) 35 U/L (3-41) Alkaline Phosphatase 66 U/L (40-129) Total Creatine Kinase 237 U/L (38-174) H C-Reactive Protein, Quantitative 10.6 mg/dL (< 0.5) H Total Protein 6.9 g/dL (6.6-8.7) Albumin 3.5 g/dL (3.5-5.2) Globulin 3.4 g/dL Albumin/Globulin Ratio 1.0 (1.0-2.7) EBV Early Ag Ab (Restrict +Diffuse) Pending Current Medications Medications (Trade) Dose Ordered Sig/[place] Route PRN Reason Start Time Stop Time Status Last Admin Dose Admin Acetaminophen (Tylenol) 650 mg Q4H PRN ORAL Mild Pain/Temp > 100.5 02/12/17 12:30 03/14/17 12:29 Acetaminophen/ Hydrocodone Bitart ([place] 5/325) 1 tab Q6H PRN ORAL sever Pain (Pain Scale 6-10) 02/14/17 11:30 02/21/17 11:29 Gabapentin 100 mg 100 mg THREE TIMES A DAY ORAL 02/12/17 18:00 03/14/17 17:59 02/14/17 12:18 Ibuprofen (Motrin) 600 mg TIPC ORAL 5/24/17 15:00 03/15/17 14:59 02/14/17 12:17 Ondansetron HCl (Zofran) 4 mg Q6H PRN IVP Nausea & Vomiting 02/13/17 11:00 03/15/17 10:59 Pantoprazole (Protonix) 40 mg EVERY 12 HOURS ORAL 02/13/17 15:00 03/15/17 14:59 02/14/17 08:56 Sodium Chloride (Sodium Chloride 1000ml bag) 1,000 ml @ 100 mls/hr Q10H IV 02/12/17 15:00 03/14/17 14:59 02/14/17 08:56 Davey Nair M.D. February 14, 2017 15:18
[2017-02-14 16:00] VITALS: BP 110/58
[2017-02-14 20:00] VITALS: BP 128/78
[2017-02-15] VITALS: BP 127/77
[2017-02-15] MEDS: Norco 5mg/325mg tab ORAL PRN ×2 (00:18→08:25)
[2017-02-15 08:26] VITALS: BP 133/93
[2017-02-15 12:10] VITALS: BP 129/85
--- NOTE | 2017-02-15 12:11 | General Progress Note ---
Assessment/Plan Status: stable Assessment/Plan status: Rhabdo- Ck lowering dehydration- Myopathy- ? viral DM , high A1c plan: diabetic diet motrin gastric support ? DC planning? Subjective ROS Limited/Unobtainable: No Allergies: Coded Allergies: No Known Allergies (Unverified , 02/12/17) Objective Last 24 Hour Vital Signs Date Time Temp Pulse Resp B/P Pulse Ox O2 Delivery O2 Flow Rate FiO2 02/15/17 08:26 97.7 62 14 133/93 98 Room Air 02/15/17 03:51 97.5 02/15/17 01:17 97.5 02/15/17 00:00 98.0 67 18 127/77 98 Room Air 02/14/17 20:00 97.5 68 18 128/78 97 Room Air 02/14/17 17:32 97.2 02/14/17 16:00 97.2 60 20 110/58 96 Room Air Intake and Output 02/14/17 02/15/17 19:00 07:00 Intake Total 1340 ml 1900 ml Balance 1340 ml 1900 ml Intake Oral 240 ml 800 ml IV Total 1100 ml 1100 ml # Voids 4 5 # Bowel Movements 1 Height (Feet): 5 Height (Inches): 7.00 Weight (Pounds): 214 General Appearance: no apparent distress Objective other PE not changed DANIE CHAVEZ February 15, 2017 12:11
--- NOTE | 2017-02-15 12:55 | Neurology Progress Note ---
Interim History Interim History Interim History Mr. Bullard feels much better. The muscle pain has almost completely resolved. His strength has come back. He is able to use his upper extremities well. He is able to stand and walk independently. The tingling and numbness has resolved completely. He denies any new neurologic symptoms. Review of Systems Neuro Review of Systems Benign. Objective Physical Exam Last Vital Signs Date Time Temp Pulse Resp B/P Pulse Ox O2 Delivery O2 Flow Rate FiO2 02/15/17 12:10 97.0 62 18 129/85 99 Room Air 02/13/17 00:00 99.0 Neurologic Exam Objective PHYSICAL EXAMINATION: GENERAL: He is a well-developed, well-nourished, gentleman, sitting up in a chair, in no acute distress. HEAD: Normocephalic and atraumatic. NECK: No neck rigidity was observed. EENT: Benign. NEUROLOGIC EXAMINATION: MENTAL STATUS EXAMINATION: He was alert and awake. He was oriented to person, place, and time. He was able to recall 3/3 words immediately after 1 minute and 3 minutes. He was able to remember presidents Trump and Obama but could not remember presidents prior to that. His mathematical skills were impaired. His visuospatial function was also impaired. SPEECH: He had no dysarthria. LANGUAGE: He had no aphasia. CRANIAL NERVE EXAMINATION: II: The visual angulo were intact on confrontation testing. III, IV & : The external ocular movements were full and pupils were 3 mm in diameter, equal, round, and reactive to light. V: He had normal facial sensations and the temporales, masseters, and pterygoids functioned normally. VII: He had normal facial expressions and no facial asymmetry. VIII: He was able to hear well bilaterally and had no nystagmus. IX: The palate moved symmetrically on phonation. X: He had no hoarseness of voice. XI: The sternocleidomastoids and trapezii functioned normally. XII: The tongue was in the midline without any fasciculations or atrophy. MOTOR SYSTEM: The tone was normal in all four extremities. Examination of muscle mass revealed no focal wasting. Examination of power revealed G 5/5 power. He had no muscle tenderness. SENSORY EXAMINATION: He had intact sensations to pinprick, light touch, and graphesthesia. COORDINATION: [id number] and xcpv-yw-ddvl testing was performed well. REFLEXES: 0 at the biceps, triceps, brachioradialis and ankles. 1++ at the knees. The plantar responses were flexor bilaterally. STANCE: He stood up independently. GAIT: He walked well independently. Impression/Recommendations Diagnostic Impression 1. Mr. Trevor Bullard is a 37-year-old, right-handed, gentleman, who has a relatively benign past history. On 02/09/2017, he developed an itchy rash all over his body. On the next day, that is 02/10/2017 he developed paresthesias involving all four extremities and also started to have pain in all his muscles and weakness in all four limbs, these problems continued and as a result of that he came to the hospital and was admitted. 2. He feels much better today. The pain, weakness and numbness have all resolved almost completely. 3. On neurological examination, at this time, he has problems with visuospatial function, and higher cognitive function. His weakness has resolved. The muscle tenderness has also resolved. He still has global areflexia other than return of knee jerks. He is able to stand and walk independently. 4. Laboratory data on my initial evaluation revealed that his WBC count was elevated to 11.7 and he was anemic with a hemoglobin of 13.5. His chemistry panel revealed an anion gap of 16 a blood glucose elevated to 147 and ALT elevated at 49. His CK was elevated to 1496. His urinalysis was relatively benign. His toxicology screen was benign to start with but a repeat toxicology screen was positive for opiates. It should be noted that he did get some opiates in the emergency room. 5. Further laboratory tests have revealed that his HB A1C is elevated to 6.7% putting him in a diabetic range. His ESR is also elevated to 65. 6. Hs CK is now down to 237. 7. 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 8. An MRI scan of the brain is relatively benign. 9. The patient's history and neurological examination associated with laboratory data are most compatible with a significant myopathic process and in addition a neuropathic process. The most likely etiology for these processes would be a viral syndrome or other infectious process. The neuropathy could also be related to diabetes. 10. The patient's neurocysticercosis is asymptomatic. 11. His neuropathy and myopathy are both improving rapidly. Recommendations 1. Continue present management. 2. Await results of aldolase and EBV titers. 3. Treatment of diabetes mellitus. 4. Increase activity as tolerated. Louie Casillas M.D., M.S.P.H. LOUIE CASILLAS February 15, 2017 12:55
--- NOTE | 2017-02-15 13:45 | General Progress Note ---
Assessment/Plan Problem List: (1) Rhabdomyolysis ICD Codes: M62.82 - Rhabdomyolysis SNOMED: 914933519 Qualifiers: Qualified Codes: M62.82 - Rhabdomyolysis (2) Brain parenchymal calcification ICD Codes: G93.89 - Other specified disorders of brain SNOMED: 15513102 Status: progressing Assessment/Plan decreased pain afebrile vitals stable dc planning rhabdo is improving w fluids Subjective ROS Limited/Unobtainable: Yes Constitutional: Reports: no symptoms Allergies: Coded Allergies: No Known Allergies (Unverified , 02/12/17) Objective Last 24 Hour Vital Signs Date Time Temp Pulse Resp B/P Pulse Ox O2 Delivery O2 Flow Rate FiO2 02/15/17 12:10 97.0 62 18 129/85 99 Room Air 02/15/17 08:26 97.7 62 14 133/93 98 Room Air 02/15/17 03:51 97.5 02/15/17 01:17 97.5 02/15/17 00:00 98.0 67 18 127/77 98 Room Air 02/14/17 20:00 97.5 68 18 128/78 97 Room Air 02/14/17 17:32 97.2 02/14/17 16:00 97.2 60 20 110/58 96 Room Air Intake and Output 02/14/17 02/15/17 19:00 07:00 Intake Total 1340 ml 1900 ml Balance 1340 ml 1900 ml Intake Oral 240 ml 800 ml IV Total 1100 ml 1100 ml # Voids 4 5 # Bowel Movements 1 Height (Feet): 5 Height (Inches): 7.00 Weight (Pounds): 214 EENT: PERRL/EOMI Neck: supple Cardiovascular: normal rate Respiratory/Chest: lungs clear Abdomen: soft Arnie Zepeda MD February 15, 2017 13:45
--- NOTE | 2017-02-15 15:55 | Infectious Diseases Prog Note ---
Assessment/Plan Problems: (1) Brain parenchymal calcification Assessment & Plan: could be due to cystocercosis, brain MRI didn't show any active cysts , so no need for treatment (2) Rhabdomyolysis Assessment & Plan: doubt due to infectious etiology with no viral symptoms, suspect due to dehydration and vigorous activity , continue IVF , monitor CK. (3) Borderline diabetes mellitus Assessment & Plan: recommend diet and exercise, with close monitor of HbA1c Subjective Constitutional: Reports: fatigue HEENT: Reports: no symptoms Respiratory: Reports: no symptoms Breasts: Reports: no symptoms Cardiovascular: Reports: no symptoms Gastrointestinal/Abdominal: Reports: no symptoms Genitourinary: Reports: no symptoms Neurologic: Reports: no symptoms Psychiatric: Reports: no symptoms Skin: Reports: no symptoms Endocrine: Reports: no symptoms Hematologic: Reports: no symptoms Musculoskeletal: Reports: no symptoms Allergies: Coded Allergies: No Known Allergies (Unverified , 02/12/17) Objective Vital Signs Last 24 Hour Vital Signs Date Time Temp Pulse Resp B/P Pulse Ox O2 Delivery O2 Flow Rate FiO2 02/15/17 12:10 97.0 62 18 129/85 99 Room Air 02/15/17 08:26 97.7 62 14 133/93 98 Room Air 02/15/17 03:51 97.5 02/15/17 01:17 97.5 02/15/17 00:00 98.0 67 18 127/77 98 Room Air 02/14/17 20:00 97.5 68 18 128/78 97 Room Air 02/14/17 17:32 97.2 02/14/17 16:00 97.2 60 20 110/58 96 Room Air Height (Feet): 5 Height (Inches): 7.00 Weight (Pounds): 214 General Appearance: WD/WN, no acute distress HEENT: normocephalic, atraumatic, anicteric, mucous membranes moist Respiratory/Chest: chest wall non-tender, lungs clear, normal breath sounds, no respiratory distress Cardiovascular: normal peripheral pulses, normal rate, regular rhythm, no gallop/murmur Abdomen: normal bowel sounds, soft, non tender, no organomegaly, non distended , no mass Extremities: no cyanosis, no clubbing Skin: no rash, no lesions Current Medications Medications (Trade) Dose Ordered Sig/Cortney Route PRN Reason Start Time Stop Time Status Last Admin Dose Admin Acetaminophen (Tylenol) 650 mg Q4H PRN ORAL Mild Pain/Temp > 100.5 02/12/17 12:30 03/14/17 12:29 02/15/17 02:52 Gabapentin (Neurontin) 100 mg THREE TIMES A DAY ORAL 02/12/17 18:00 03/14/17 17:59 02/15/17 12:23 Ibuprofen (Motrin) 600 mg TIPC ORAL 02/13/17 15:00 03/15/17 14:59 02/15/17 12:24 Ondansetron HCl (Zofran) 4 mg Q6H PRN IVP Nausea & Vomiting 02/13/17 11:00 03/15/17 10:59 Pantoprazole (Protonix) 40 mg EVERY 12 HOURS ORAL 02/13/17 15:00 03/15/17 14:59 02/15/17 08:25 Davey Nair M.D. February 15, 2017 15:55
[2017-02-15 16:07] VITALS: BP 119/70
[2017-02-15 20:00] VITALS: BP 137/75
[2017-02-16] VITALS: BP 120/80
[2017-02-16 04:00] VITALS: BP 120/88
[2017-02-16 08:00] VITALS: BP 137/87
--- NOTE | 2017-02-16 09:28 | General Progress Note ---
Assessment/Plan Problem List: (1) Rhabdomyolysis ICD Codes: M62.82 - Rhabdomyolysis SNOMED: 154585136 Qualifiers: Qualified Codes: M62.82 - Rhabdomyolysis (2) Brain parenchymal calcification ICD Codes: G93.89 - Other specified disorders of brain SNOMED: 90143042 Status: progressing Assessment/Plan afebrile vitals stable rhabdo resolved no acute events dc home renal cleared dc as well viral syndrome? Subjective ROS Limited/Unobtainable: Yes Allergies: Coded Allergies: No Known Allergies (Unverified , 02/12/17) Objective Last 24 Hour Vital Signs Date Time Temp Pulse Resp B/P Pulse Ox O2 Delivery O2 Flow Rate FiO2 02/16/17 08:00 97.7 62 18 137/87 98 Room Air 02/16/17 04:00 97.3 55 18 120/88 98 Room Air 02/16/17 00:00 97.5 53 18 120/80 97 Room Air 02/15/17 20:00 97.8 53 18 137/75 98 Room Air 02/15/17 16:07 97.5 29 18 119/70 99 Room Air 02/15/17 12:10 97.0 62 18 129/85 99 Room Air Intake and Output 02/15/17 02/16/17 19:00 07:00 Intake Total 1500 ml Balance 1500 ml Intake Oral 1100 ml IV Total 400 ml # Voids 4 2 # Bowel Movements 1 Height (Feet): 5 Height (Inches): 7.00 Weight (Pounds): 214 Neck: supple Cardiovascular: normal rate Respiratory/Chest: lungs clear Abdomen: soft Arnie Zepeda MD February 16, 2017 09:28
--- NOTE | 2017-02-16 10:24 | General Progress Note ---
Assessment/Plan Status: stable Assessment/Plan status: Rhabdo- Ck lowering dehydration- Myopathy- ? viral DM , high A1c plan: diabetic diet motrin ? DC Subjective ROS Limited/Unobtainable: No Allergies: Coded Allergies: No Known Allergies (Unverified , 02/12/17) Objective Last 24 Hour Vital Signs Date Time Temp Pulse Resp B/P Pulse Ox O2 Delivery O2 Flow Rate FiO2 02/16/17 08:00 97.7 62 18 137/87 98 Room Air 02/16/17 04:00 97.3 55 18 120/88 98 Room Air 02/16/17 00:00 97.5 53 18 120/80 97 Room Air 02/15/17 20:00 97.8 53 18 137/75 98 Room Air 02/15/17 16:07 97.5 29 18 119/70 99 Room Air 02/15/17 12:10 97.0 62 18 129/85 99 Room Air Intake and Output 02/15/17 02/16/17 19:00 07:00 Intake Total 1500 ml Balance 1500 ml Intake Oral 1100 ml IV Total 400 ml # Voids 4 2 # Bowel Movements 1 Height (Feet): 5 Height (Inches): 7.00 Weight (Pounds): 214 General Appearance: no apparent distress Objective other PE not changed DANIE CHAVEZ February 16, 2017 10:24
--- NOTE | 2017-02-19 09:08 | Discharge Summary ---
Discharge Summary Hospital Course Date of Admission February 12, 2017 at 07:49 Date of Discharge February 16, 2017 at 11:30 Admitting Diagnosis RHABDOMYOLYSIS, NEUROCYSTICERCOSIS YVES Bullard is a 37 year old male who was admitted on February 12, 2017 at 07:49 for Rhabdomyolysis,Neurocysticercosis Hospital Course dc summary#[id number] Discharge Medications Continued Medications: No Known Medications* (NKM - No Known Medications*) . 0 ., 0 Refills Discharge Condition Upon Discharge: stable Discharge Disposition Patient was discharged to Home (01) Discharge Diagnoses: Discharge Instructions Discharge Instructions Special Instructions I have been assigned to complete a D/C Summary on this account. I was not involved in the patient management Jessica Varner NP (Vanchtein) February 19, 2017 09:08
[2017-02-19 10:20] LABS: ALDOLASE 7.1 U/L (3.3-10.3); VITAMIN D 25-OH TOTAL 12 ng/mL (.)
--- NOTE | 2017-02-19 23:00 | Discharge Summary 2 SIG ---
DATE OF ADMISSION: 02/12/2017 DATE OF DISCHARGE: 02/16/2017 The patient is admitted under Dr. Zepeda. REASON FOR ADMISSION: The patient is a 37-year-old male, presented to the emergency room with complaint of arm and leg pain. The patient stated the symptoms started when he woke up in the morning. The patient noted tingling sensation in bilateral arms and legs. He also noted pain in his shoulders bilaterally. The patient reported difficulty raising his shoulder. The patient also reported pain in bilateral hips and legs. The patient reported difficulty walking. Pain is described as a throbbing, nonradiating, 10/10 on a scale 1 to 10. The patient denied drug use. Denied chest pain. No shortness of breath. Workup in the emergency department revealed CK of 1496. Urine tox screen was initially negative then was positive for opiates after the patient was medicated in the emergency room. CT of the head revealed no evidence of acute intracranial bleeding or mass effect. It demonstrated parenchymal calcification consistent with old neurocysticercosis. Cervical CT of the spine revealed no evidence of acute bony trauma. Subsequently, an MRI of the brain was done, which was essentially unremarkable. Negative for acute intracranial bleeding, mass effect, infarct, or contrast-enhancing lesion. Parenchymal calcification described on head CT were barely visualized on MRI. The patient is admitted for further management. In the emergency department, the patient was given two liters of the IV fluids. Laboratory workup revealed anion gap of 16 and glucose of 147. WBC 11.7 and hemoglobin 13.5. Urinalysis was negative. Stable renal parameters. No evidence of acute kidney injury. The patient was admitted for further management. ADMITTING DIAGNOSES: Includes: 1. Rhabdomyolysis. 2. Dehydration. 3. Significant myopathy. 4. Old neurocysticercosis. 5. Diabetes mellitus. 6. Hyperglycemia. HOSPITAL STAY: The patient was admitted. Neurology and Nephrology consults were requested along with the pain specialist consult. According to neurologist, the patient's history and physical examination were most consistent with significant myopathy in addition to neuropathic process likely of viral etiology. The patient undergone workup, which essentially was stable. The patient's human immunodeficiency virus status was negative. Roxanne-Gruber status negative. RPR negative. Stable level of B12, TSH, and folate. The patient was continued on generous IV hydration and CK was trending. Prior to discharge, CK 237. Initially, neurologist recommended that the patient's condition will worsen, consider lumbar puncture to rule out acute inflammatory demyelinating polyneuropathy. However, is aphasic. With pain management, intravenous hydration, and physical and occupational therapy, the patient's condition significantly improved. Muscle pain nearly completely resolved. Strength came back. The patient able to use upper extremities well. The patient is able to stand and walk independently. Tingling and numbness resolved completely. The patient denied any new neurological symptoms. Again according to neurologist, the etiology of myopathy likely related to viral syndrome. The neuropathy could be related to diabetes. Hemoglobin A1c was 6.7. The patient is not aware of the diabetes. The patient needs further workup and management for diabetes as outpatient. Follow up with the primary medical doctor. Again after generous IV hydration, CK down to 237. No evidence of acute kidney injury. Muscle strength returned. No new neurological symptoms. [employer] closely followed as well. Neurologist felt that rhabdomyolysis is likely secondary to dehydration, which resolved with generous IV hydration. The patient had evidence of old neurocysticercosis on the CT of the brain, however, asymptomatic and no treatment required as per neurologist. The patient was stable for discharge home. FINAL DIAGNOSES: Includes: 1. Rhabdomyolysis. 2. Dehydration. 3. Significant myopathy likely due to viral etiology. 4. Old neurocysticercosis, asymptomatic. 5. Diabetes mellitus. DISCHARGE MEDICATIONS: See medication reconciliation list. DISCHARGE INSTRUCTIONS: The patient to follow up with the primary medical doctor for further management for diabetes. The patient was counseled to maintain adequate hydration. Arnie Zepeda M.D. I have been assigned to dictate discharge summary on this account and I was not involved in the patient's management. Jessica [email or web address] N.PFariba DR: DILCIA JOB#: [id number] CC:
== END 2017-02-16 11:30 | disposition home or self-care (01) | DRG 58 ==
LOC: EMR 06:25 → EDBEDREQ 07:31 → 4E 07:49 → EDBEDREQ 07:57
DX: G72.89 Other specified myopathies (principal); M62.82 Rhabdomyolysis; E11.8 Type 2 diabetes mellitus with unspecified complications; B69.0 Cysticercosis of central nervous system; G62.9 Polyneuropathy, unspecified; E86.0 Dehydration; K21.9 Gastro-esophageal reflux disease without esophagitis
CPT/HCPCS: 36415; 70450; 70553; 72125; 80053; 80061; 80300; 81001; 82085; 82306; 82550; 82553; 82607; 82746; 82962; 82977; 83036; 83615; 83735; 84100; 84443; 84484; 84550; 85025; 85651; 86140; 86592; 86663; 86682; 86703; 93005; 93970; A9585

== ENCOUNTER 2017-03-01 14:24 | Emergency (ER) | payer MEDICAID ==
[~2017-03-01] VITALS: Ht 172.7 cm; Wt 95.3 kg
[~2017-03-01 14:24] MED LIST: NKM
[2017-03-01 14:45] VITALS: BP 112/70
--- NOTE | 2017-03-01 14:57 | Emergency Room Report ---
History of Present Illness General Chief Complaint: General Complaint Source: Patient Present Illness HPI The patient is a 37-year-old male who was discharged from this hospital one week prior for rhabdomyolysis presenting for reevaluation. He states that his symptoms have have vastly improved and is not experiencing any pain at all at this time. He states that he would like a return to work note. He has been taking in plenty of fluids. He denies any symptoms including nausea, vomiting, headache, dizziness, muscle pain, fatigue, dysuria, hematuria, chest pain, shortness of breath Allergies: Coded Allergies: No Known Allergies (Unverified , 02/12/17) Patient History Past Medical History: see triage record Pertinent Family History: none Reviewed Nursing Documentation: PMH: Agreed, PSxH: Agreed Nursing Documentation-PMH Past Medical History: No Stated History Review of Systems All Other Systems: negative except mentioned in HPI Physical Exam Vital Signs Date Time Temp Pulse Resp B/P Pulse Ox O2 Delivery O2 Flow Rate FiO2 03/01/17 14:40 98.4 79 16 112/70 98 Room Air Sp02 EP Interpretation: reviewed, normal General Appearance: no apparent distress, alert, GCS 15, non-toxic Head: normocephalic, atraumatic Eyes: bilateral eye PERRL, bilateral eye normal inspection ENT: hearing grossly normal, normal pharynx, no angioedema, normal voice Neck: full range of motion, supple/symm/no masses Respiratory: chest non-tender, lungs clear, normal breath sounds, speaking full sentences Cardiovascular #1: regular rate, rhythm, no edema Musculoskeletal: back normal, gait/station normal, normal range of motion, non- tender Neurologic: alert, oriented x3, responsive, motor strength/tone normal, sensory intact, speech normal Psychiatric: judgement/insight normal, memory normal, mood/affect normal, no suicidal/homicidal ideation Skin: normal color, no rash, warm/dry, well hydrated Lymphatic: no adenopathy Medical Decision Making PA Attestation Dr. Fuentes is my supervising physician. Patient management was discussed with my supervising physician Diagnostic Impression: Primary Impression: Rhabdomyolysis Qualified Codes: M62.82 - Rhabdomyolysis ER Course The patient is a 37-year-old male with a recent diagnosis of rhabdomyolysis presenting for a return to work note. PE: No apparent distress. A&Ox4 PERRL. EOMI. Normal mentation. RRR. No MRG Lungs CTA bilat Full AROM of all extremities Skin is warm and dry, no rashes. Normal turgor The patient will return to work with light duty. He is given ER precautions and needs to follow up with PMD. Chest X-Ray Diagnostic Results Chest X-Ray Ordered: No Last Vital Signs Date Time Temp Pulse Resp B/P Pulse Ox O2 Delivery O2 Flow Rate FiO2 03/01/17 14:45 98.4 16 112/70 98 Room Air 03/01/17 14:40 79 Status: improved Disposition: HOME, SELF-CARE Condition: Improved Departure Forms: Return to Work Return to Work Date: Mar 04, 2017 Patient Instructions: Rhabdomyolysis Additional Instructions: I discussed my findings with the patient. All questions and concerns have been answered. Treatment and medication compliance have been addressed. I advised the patient that they need to follow up with PMD in 3-5 days. Return to ED if symptoms worsen, new symptoms arise, or if needed for any reason. Patient verbalized understanding of discharge instructions. Note: the patient was discharged from the hospital on 02/16 and is now clear to return to work on 03/04/2017. Please return to the ER if pain continues or worsens or for any reason. NATHANIEL CHIN Mar 01, 2017 14:57
[2017-03-01 14:59] VITALS: BP 112/70
== END 2017-03-01 15:00 | disposition home or self-care (01) ==
LOC: EMR 14:51
DX: M62.82 Rhabdomyolysis (principal); Z02.79 Encounter for issue of other medical certificate
CPT/HCPCS: 99283

== ENCOUNTER 2017-07-13 04:50 | Emergency (ER) | payer MEDICAID ==
[~2017-07-13] VITALS: Ht 170.2 cm; Wt 93.0 kg
[2017-07-13 05:06] VITALS: BP 123/80
--- NOTE | 2017-07-13 05:13 | Emergency Room Report ---
History of Present Illness General Chief Complaint: Allergic Reaction Source: Patient Present Illness HPI The patient presents with hives. This is been going on for 2 days. He has been using a new shampoo that his has been using. In addition to that is under stress. He allegedly did some crystal a couple days ago. He never had a rash like this before. He is also feeling some chest pain that's pressure in his chest and also hear himself wheezing. There's been no nausea vomiting or diarrhea. Is not taking any medication for this. The rash has been worsening, but the other symptoms have been stable. He has more discomfort from the rash ( 6/10) than chest pressure. No SI/HI. No NVD, dysuria, hematuria. Smokes. Denies DM, HTN, family history of heart problems. Prior notes suggest borderline DM. Allergies: Coded Allergies: No Known Allergies (Unverified , 02/12/17) Patient History Past Medical History: see triage record Social History: Reports: smoking, alcohol use, drug use Social History Narrative Works in a kitchen Reviewed Nursing Documentation: PMH: Agreed, PSxH: Agreed Nursing Documentation-PMH Past Medical History: No Stated History Review of Systems All Other Systems: negative except mentioned in HPI Physical Exam Vital Signs Date Time Temp Pulse Resp B/P (MAP) Pulse Ox O2 Delivery O2 Flow Rate FiO2 07/13/17 04:54 99.0 120 18 131/63 100 Room Air Sp02 EP Interpretation: reviewed, normal General Appearance: well appearing, no apparent distress, GCS 15 Head: normocephalic Eyes: bilateral eye normal inspection, bilateral eye Scleral Injection ENT: moist mucus membranes Neck: supple Respiratory: lungs clear, normal breath sounds Cardiovascular #1: regular rate, rhythm, no gallop, no murmur, no rub Cardiovascular #2: 2+ radial (R) Gastrointestinal: normal inspection, normal bowel sounds, non tender, no mass, non-distended Musculoskeletal: back normal, gait/station normal, normal range of motion Neurologic: alert, oriented x3, grossly normal Psychiatric: anxious Skin: warm/dry, other - wheel flair reaction extremities and trunk Procedures Critical Care Time Critical Care Time Total Critical Care Time: 45 min bedside evaluation and treatment excludes procedures (EKG). Reason for critical care: NSTEMI Possible complications: hypotension, hypertension, PA, shock, arrhythmias, metabolic acidosis, end organ damage, respiratory failure. Interventions: aspirin, nitrates, metoprolol, plavix, heparin, repeat evaluations Course: Patient presented with hives and chest pressure. Treated for hives. EKG ST slight ST inversions. + troponin. Aspirin, nitrates given. Contact [facility] - presented X 3. Re-eval and discuss with patient and family. Given heparin, metoprolol and plavix with discussion with surfacer operator. Discussion with hospitalist. Repeat eval and discussion with transfer EMS. Consultations: nursing staff, family, transfer/cardiology/hospitalist [facility], transfer EMS Performed by: Dr. Fuentes Tolerated well condition = critical, needing higher level of care Medical Decision Making Diagnostic Impression: Primary Impression: NSTEMI (non-ST elevated myocardial infarction) Additional Impressions: Allergic reaction Qualified Codes: T78.40XA - Allergy, unspecified, initial encounter Substance abuse Hypokalemia ER Course The patient presents with hives and chest pain. Differential includes acute myocardial infarction, acute coronary syndrome although risks are low although he has been doing drugs. He states he is under stress and this did cause her hives. He to take for allergic reaction which will include Solu-Medrol, Benadryl and it's IM epinephrine. Although the patient has palpitations and chest pressure his vital signs are chest pulmonary embolus. His initial EKG shows some ST inversions in 3 and aVF with a right axis deviation however were no hyperacute changes. His potassium is low. Potassium is ordered. Glucose 125. Tox + amphetamine. Called by lab with + troponin (0.452). EKG without STEMI. Calling [facility] and giving aspirin and nitrates. [facility] initially asked if we would admit the patient here. Discussed need for higher level of care and requested discussion with surfacer operator. The patient was presented to Dr. Manley and accepted. We discussed initiation of heparin, potassium, Plavix, metoprolol. Patient is improved with treatment but needs higher level of care. Discussed with Marcia Ratliff NP who accepts the patient to the Hospitalist service. [facility] on the way. Discussed with transferring ALS team. Transferred in improved condition, but critical, needing higher level of care. Laboratory Tests Test 07/13/17 05:30 White Blood Count 9.5 K/UL (4.8-10.8) Red Blood Count 5.88 M/UL (4.70-6.10) Hemoglobin 16.9 G/DL (14.2-18.0) Hematocrit 50.5 % (42.0-52.0) Mean Corpuscular Volume 86 FL (80-99) Mean Corpuscular Hemoglobin 28.8 PG (27.0-31.0) Mean Corpuscular Hemoglobin Concent 33.5 G/DL (32.0-36.0) Red Cell Distribution Width 11.8 % (11.6-14.8) Platelet Count 253 K/UL (150-450) Mean Platelet Volume 7.6 FL (6.5-10.1) Neutrophils (%) (Auto) 64.7 % (45.0-75.0) Lymphocytes (%) (Auto) 27.7 % (20.0-45.0) Monocytes (%) (Auto) 6.1 % (1.0-10.0) Eosinophils (%) (Auto) 0.6 % (0.0-3.0) Basophils (%) (Auto) 0.9 % (0.0-2.0) Urine Color Brown Urine Appearance Clear Urine pH 6 (4.5-8.0) Urine Specific [place] 1.020 (1.005-1.035) Urine Protein 2+ (NEGATIVE) H Urine Glucose (UA) Negative (NEGATIVE) Urine Ketones Negative (NEGATIVE) Urine Occult Blood 1+ (NEGATIVE) H Urine Nitrite Negative (NEGATIVE) Urine Bilirubin Negative (NEGATIVE) Urine Urobilinogen 1 MG/DL (0.0-1.0) H Urine Leukocyte Esterase 1+ (NEGATIVE) H Urine RBC 2-4 /HPF (0 - 0) H Urine WBC 2-4 /HPF (0 - 0) Urine Squamous Epithelial Cells Occasional /LPF Urine Bacteria Occasional /HPF (NONE) Urine Hyaline Casts 0-2 /LPF (NONE) H Urine Fine Granular Casts 0-2 /LPF (NONE) H Urine Mucus Few /LPF (NONE/OCC) H Sodium Level 143 MMOL/L (136-145) Potassium Level 2.3 MMOL/L (3.5-5.1) *L Chloride Level 110 MMOL/L (98-107) H Carbon Dioxide Level 20 MMOL/L (21-32) L Anion Gap 11 mmol/L (5-15) Blood Urea Nitrogen 12 mg/dL (7-18) Creatinine 0.9 MG/DL (0.55-1.30) Estimate Glomerular Filtration Rate > 60 mL/min (>60) Glucose Level 125 MG/DL (74-106) H Calcium Level 6.3 MG/DL (8.5-10.1) L Total Bilirubin 0.6 MG/DL (0.2-1.0) Aspartate Amino Transferase (AST) 16 U/L (15-37) Alanine Aminotransferase (ALT) 31 U/L (12-78) Alkaline Phosphatase 53 U/L (46-116) Total Creatine Kinase 58 U/L (26-308) Troponin I 0.453 ng/mL (0.000-0.056) Total Protein 5.3 G/DL (6.4-8.2) L Albumin 2.4 G/DL (3.4-5.0) L Globulin 2.9 g/dL Albumin/Globulin Ratio 0.8 (1.0-2.7) L Salicylates Level < 2.8 ug/mL (2.8-20) L Urine Opiates Screen Negative (NEGATIVE) Acetaminophen Level < 2 MCG/ML (10-30) L Urine Barbiturates Screen Negative (NEGATIVE) Phencyclidine (PCP) Screen Negative (NEGATIVE) Urine Amphetamines Screen Positive (NEGATIVE) H Urine Benzodiazepines Screen Negative (NEGATIVE) Urine Cocaine Screen Negative (NEGATIVE) Urine Marijuana (THC) Screen Negative (NEGATIVE) Serum Alcohol < 0 mg/dL EKG Diagnostic Results Rate: normal Rhythm: NSR ST Segments: no acute changes Other Impression Repeat EKG was done at 6:47. No sinus rhythm with right axis deviation and strain pattern inferiorly. Rhythm Strip Diag. Results EP Interpretation: yes Rhythm: NSR, no PVC's, no ectopy Chest X-Ray Diagnostic Results Chest X-Ray Diagnostic Results : Chest X-Ray Ordered: Yes # of Views/Limited/Complete: 1 View Indication: Chest Pain EP Interpretation: Yes Interpretation: no consolidation, no effusion, no pneumothorax, no acute cardiopulmonary disease Electronically Signed by: Electronically signed by Kyle Fuentes MD Last Vital Signs Date Time Temp Pulse Resp B/P (MAP) Pulse Ox O2 Delivery O2 Flow Rate FiO2 07/13/17 08:40 98.3 87 19 105/61 96 Room Air Status: improved Disposition: XFER SHT-TRM HOSP - High-level care stable for transfer Condition: Critical Referrals: NOT CHOSEN GHANSHYAM/,REFERRING (PCP) Kyle Fuentes M.D. Jul 13, 2017 05:13
[2017-07-13] MEDS ORDERED: DiphenhydrAMINE 50mg/ml Inj IVP ONE (05:15)
[2017-07-13] MEDS ORDERED: LORazepam Inj 2mg/ml 1ml IV ONE (05:15)
[2017-07-13] MEDS ORDERED: Solu-MEDROL 125mg Inj IVP ONE (05:15)
[2017-07-13] MEDS ORDERED: Albuterol ud Inhalation HHN ONE (05:15)
[2017-07-13] MEDS ORDERED: EPINEPHrine 1mg/1ml Amp IM ONE (05:15)
[2017-07-13 05:49] LABS: BASOPHILS % (AUTO) 0.9 % (0.0-2.0); EOSINOPHILS % (AUTO) 0.6 % (0.0-3.0); LYMPHOCYTES % (AUTO) 27.7 % (20.0-45.0); MEAN CORPUSCULAR HEMOGLOBIN 28.8 PG (27.0-31.0); MEAN CORPUSCULAR HGB CONC 33.5 G/DL (32.0-36.0); MEAN CORPUSCULAR VOLUME 86 FL (80-99); MEAN PLATELET VOLUME 7.6 FL (6.5-10.1); MONOCYTES % (AUTO) 6.1 % (1.0-10.0); NEUTROPHILS % (AUTO) 64.7 % (45.0-75.0); PLATELET COUNT 253 K/UL (150-450); RED BLOOD COUNT 5.88 M/UL (4.70-6.10); RED CELL DISTRIBUTION WIDTH 11.8 % (11.6-14.8); WHITE BLOOD COUNT 9.5 K/UL (4.8-10.8)
[2017-07-13 06:02] LABS: ACETAMINOPHEN < 2 MCG/ML (10-30); ALANINE AMINOTRANSFERASE 31 U/L (12-78); ALBUMIN/GLOBULIN RATIO 0.8 (1.0-2.7); ANION GAP 11 mmol/L (5-15); ASPARTATE AMINO TRANSFERASE 16 U/L (15-37); CALCIUM 6.3 MG/DL (8.5-10.1); CARBON DIOXIDE 20 MMOL/L (21-32); CHLORIDE 110 MMOL/L (98-107); CREATININE 0.9 MG/DL (0.55-1.30); GLOMERULAR FILTRATION RATE > 60 mL/min (>60); SODIUM 143 MMOL/L (136-145); TOTAL PROTEIN 5.3 G/DL (6.4-8.2)
[2017-07-13 06:03] LABS: APPEARANCE,URINE CLEAR; KETONES,URINE NEGATIVE (NEGATIVE); LEUKOCYTE ESTERASE ,URINE 1+ (NEGATIVE); NITRITE,URINE NEGATIVE (NEGATIVE); PH,URINE 6 (4.5-8.0); PROTEIN,URINE 2+ (NEGATIVE); UROBILINOGEN,URINE 1 MG/DL (0.0-1.0)
[2017-07-13 06:06] VITALS: BP 118/78
[2017-07-13 06:10] LABS: POTASSIUM 2.3 MMOL/L (3.5-5.1)
[2017-07-13 06:11] LABS: ALCOHOL < 0 mg/dL
[2017-07-13] MEDS ORDERED: Nitroglycerin 2% oint pkt TOPIC ONE (06:15)
[2017-07-13 06:27] LABS: BACTERIA,URINE OCCASIONAL /HPF; SQUAMOUS EPITHELIAL CELL,UR OCCASIONAL /LPF (NONE/OCC)
[2017-07-13 06:28] LABS: FINE GRANULAR CASTS,URINE 0-2 /LPF; HYALINE CASTS, URINE 0-2 /LPF; MUCUS,URINE FEW /LPF (NONE/OCC)
[2017-07-13] MEDS ORDERED: KCl 10% 40mEq/30ml liquid ORAL STA (06:43)
[2017-07-13] MEDS ORDERED: Metoprolol 5mg/5ml Inj IVP STA (06:43)
[2017-07-13] MEDS ORDERED: Heparin 5000 units/ml inj IV ONE (06:45)
[2017-07-13 07:05] VITALS: BP 102/78
[2017-07-13 08:00] VITALS: BP 105/61
[2017-07-13 08:40] VITALS: BP 105/61
--- NOTE | 2017-07-13 10:47 | Diagnostic Imaging Report ---
Indication: Dyspnea Comparison: None A single view chest radiograph was obtained. Findings: Cardiomediastinal appearance is within normal limits for age. Pulmonary vascularity is appropriate. The diaphragmatic contour is smooth and costophrenic angles are sharp. No pleural effusions are identified. The bones are unremarkable. Impression: No acute findings
--- NOTE | 2017-07-14 17:22 | Cardiology Report ---
APPROVED REPORT EKG Measurement Heart [id number] OR 148P2 [id number] Normal sinus rhythm Right axis deviation Abnormal ECG
== END 2017-07-13 08:40 | disposition short-term general hospital (02) ==
LOC: EMR 05:04
DX: I21.4 Non-ST elevation (NSTEMI) myocardial infarction (principal); T78.40XA Allergy, unspecified, initial encounter; X58.XXXA Exposure to other specified factors, initial encounter; E87.6 Hypokalemia; F19.10 Other psychoactive substance abuse, uncomplicated
CPT/HCPCS: 36415; 71010; 80053; 80307; 80329; 81003; 82550; 84484; 85025; 93005; 94640; 94664; 96361; 96372; 96374; 96375; 99285; J0171; J1200; J1644; J2930